=== PATIENT | female | born 1945 | race Caucasian/White ===

== ENCOUNTER 2021-12-05 00:49 | Outpatient (RCR) | payer MEDICARE, BC, SELFPAY ==
[2021-12-04 09:10] VITALS: BP 102/65; PULSE 76; RESP 17; TEMP 36.4; O2SAT 98
[2021-12-04] MEDS: Normal Saline Flush 10 ML SYR IVP (09:11)
[2021-12-04] MEDS: IMMUNE GLOBULIN 5 GM/50 ML BTL IVPB (09:11)
[2021-12-04 09:35] VITALS: BP 109/71; PULSE 80; RESP 16; TEMP 36.3; O2SAT 96
[2021-12-04 09:50] VITALS: BP 110/76; PULSE 80; RESP 17; TEMP 35.8; O2SAT 98
[2021-12-04] MEDS: IMMUNE GLOBULIN 20 GM/200 ML BTL IVPB (10:04)
[2021-12-04 10:20] VITALS: BP 102/68; PULSE 77; RESP 16; TEMP 36.3; O2SAT 98
[2021-12-04 10:50] VITALS: BP 116/77; PULSE 79; RESP 16; TEMP 36.4; O2SAT 97
[2021-12-05] MEDS: Normal Saline Flush 10 ML SYR IVP (09:03)
[2021-12-05] MEDS: IMMUNE GLOBULIN 5 GM/50 ML BTL IVPB (09:03)
[2021-12-05 09:10] VITALS: BP 112/79; PULSE 70; RESP 18; TEMP 36.5; O2SAT 97
[2021-12-05 09:25] VITALS: BP 119/78; PULSE 70; RESP 17; TEMP 36.5; O2SAT 97
[2021-12-05 09:40] VITALS: BP 109/78; PULSE 72; RESP 17; TEMP 36.6; O2SAT 97
[2021-12-05] MEDS: IMMUNE GLOBULIN 20 GM/200 ML BTL IVPB (09:51)
[2021-12-05 10:10] VITALS: BP 122/78; PULSE 84; RESP 16; TEMP 36.6; O2SAT 100
[2021-12-05 10:40] VITALS: BP 132/81; PULSE 73; RESP 17; TEMP 36.5; O2SAT 99
== END 2021-12-31 23:59 | disposition home or self-care (01) ==
LOC: INF 00:49
PROVIDERS: Visit Provider Family Medicine
DX: G61.81 Chronic inflammatory demyelinating polyneuritis (principal)
CPT/HCPCS: 96365; 96366; J1459

== ENCOUNTER 2022-01-02 01:07 | Outpatient (RCR) | payer MEDICARE, BC, SELFPAY ==
[2022-01-01] VITALS (7 sets, daily range): BP systolic 114–136; BP diastolic 72–82; PULSE 61–84; RESP 16–17; TEMP 36.1–36.7; O2SAT 97–100
[2022-01-01] MEDS: IMMUNE GLOBULIN 5 GM/50 ML BTL IVPB (09:20)
[2022-01-01] MEDS: Normal Saline Flush 10 ML SYR IVP (09:21)
[2022-01-01] MEDS: IMMUNE GLOBULIN 20 GM/200 ML BTL IVPB (10:08)
[2022-01-02] MEDS: Normal Saline Flush 10 ML SYR IVP (09:04)
[2022-01-02] MEDS: IMMUNE GLOBULIN 5 GM/50 ML BTL IVPB (09:04)
[2022-01-02 09:10] VITALS: BP 123/76; PULSE 86; RESP 16; TEMP 36.1; O2SAT 98
[2022-01-02 09:25] VITALS: BP 119/77; PULSE 67; RESP 18; TEMP 36.5; O2SAT 99
[2022-01-02 09:40] VITALS: BP 114/75; PULSE 67; RESP 16; TEMP 36.5; O2SAT 98
[2022-01-02] MEDS: IMMUNE GLOBULIN 20 GM/200 ML BTL IVPB (09:52)
[2022-01-02 10:10] VITALS: BP 128/76; PULSE 67; RESP 16; TEMP 36.4; O2SAT 97
[2022-01-02 10:45] VITALS: BP 123/72; PULSE 72; RESP 22; TEMP 36.4; O2SAT 98
[2022-01-02 11:10] VITALS: BP 127/80; PULSE 67; RESP 16; TEMP 36.3; O2SAT 99
== END 2022-01-30 23:59 | disposition home or self-care (01) ==
LOC: INF 01:07
PROVIDERS: Visit Provider Family Medicine
DX: G61.81 Chronic inflammatory demyelinating polyneuritis (principal)
CPT/HCPCS: 96365; 96366; J1459

== ENCOUNTER 2022-02-04 02:03 | Outpatient (RCR) | payer MEDICARE, BC, SELFPAY ==
[2022-01-31 00:05] VITALS: BP 127/80; PULSE 67; RESP 16; TEMP 36.3
[2022-02-03 09:20] VITALS: BP 120/79; PULSE 66; RESP 16; TEMP 36.7; O2SAT 98
[2022-02-03] MEDS: IMMUNE GLOBULIN 5 GM/50 ML BTL IVPB (09:20)
[2022-02-03] MEDS: Normal Saline Flush 10 ML SYR IVP (09:23)
[2022-02-03 09:35] VITALS: BP 120/78; PULSE 70; RESP 16; TEMP 37; O2SAT 98
[2022-02-03 09:50] VITALS: BP 118/77; PULSE 72; RESP 16; TEMP 37; O2SAT 97
[2022-02-03] MEDS: IMMUNE GLOBULIN 20 GM/200 ML BTL IVPB (09:55)
[2022-02-03 10:20] VITALS: BP 118/79; PULSE 64; RESP 16; TEMP 36.7; O2SAT 97
[2022-02-03 10:50] VITALS: BP 120/72; PULSE 75; RESP 16; TEMP 36.9; O2SAT 97
[2022-02-04] MEDS: Normal Saline Flush 10 ML SYR IVP (09:04)
[2022-02-04 09:05] VITALS: BP 124/78; PULSE 83; RESP 17; TEMP 36.5; O2SAT 100
[2022-02-04] MEDS: IMMUNE GLOBULIN 5 GM/50 ML BTL IVPB (09:05)
[2022-02-04 09:25] VITALS: BP 110/74; PULSE 72; RESP 17; TEMP 36.5; O2SAT 98
[2022-02-04 09:40] VITALS: BP 115/81; PULSE 73; RESP 17; TEMP 36.6; O2SAT 100
[2022-02-04] MEDS: IMMUNE GLOBULIN 20 GM/200 ML BTL IVPB (09:53)
[2022-02-04 10:10] VITALS: BP 124/83; PULSE 75; RESP 16; TEMP 36.7; O2SAT 98
[2022-02-04 10:40] VITALS: BP 116/77; PULSE 76; RESP 16; TEMP 36.5; O2SAT 99
[2022-02-04 11:15] VITALS: BP 122/84; PULSE 74; RESP 16; TEMP 35.9; O2SAT 100
== END 2022-03-02 23:59 | disposition home or self-care (01) ==
LOC: INF 02:03
PROVIDERS: Visit Provider Family Medicine
DX: G61.81 Chronic inflammatory demyelinating polyneuritis (principal)
CPT/HCPCS: 96365; 96366; J1459

== ENCOUNTER 2022-04-01 03:08 | Outpatient (RCR) | payer MEDICARE, BC, SELFPAY ==
[2022-03-03] VITALS (7 sets, daily range): BP systolic 114–149; BP diastolic 71–84; PULSE 59–75; RESP 16–19; TEMP 35.9–36.3; O2SAT 96–99
[2022-03-03] MEDS: IMMUNE GLOBULIN 5 GM/50 ML BTL IVPB (09:17)
[2022-03-03] MEDS: Normal Saline Flush 10 ML SYR IVP (09:28)
[2022-03-03] MEDS: IMMUNE GLOBULIN 20 GM/200 ML BTL IV (09:57)
[2022-03-04 09:05] VITALS: BP 107/74; PULSE 70; RESP 16; TEMP 36.2; O2SAT 100
[2022-03-04] MEDS: IMMUNE GLOBULIN 5 GM/50 ML BTL IVPB (09:05)
[2022-03-04] MEDS: Normal Saline Flush 10 ML SYR IVP (09:13)
[2022-03-04 09:25] VITALS: BP 110/70; PULSE 65; RESP 16; TEMP 36.2; O2SAT 100
[2022-03-04 09:40] VITALS: BP 111/73; PULSE 69; RESP 16; TEMP 36.5; O2SAT 98
[2022-03-04] MEDS: IMMUNE GLOBULIN 20 GM/200 ML BTL IV (09:45)
[2022-03-04 10:10] VITALS: BP 116/75; PULSE 71; RESP 16; TEMP 36.5; O2SAT 98
[2022-03-04 10:40] VITALS: BP 142/88; PULSE 72; RESP 16; TEMP 36.3; O2SAT 100
[2022-03-04 11:05] VITALS: BP 122/81; PULSE 73; RESP 16; TEMP 36.4; O2SAT 99
[2022-03-31 11:10] VITALS: BP 116/80; PULSE 70; RESP 16; TEMP 36.6; O2SAT 100
[2022-03-31] MEDS: IMMUNE GLOBULIN 5 GM/50 ML BTL IVPB (11:10)
[2022-03-31] MEDS: Normal Saline Flush 10 ML SYR IVP (11:14)
[2022-03-31 11:25] VITALS: BP 119/79; PULSE 72; RESP 16; TEMP 36.5; O2SAT 98
[2022-03-31 11:40] VITALS: BP 123/80; PULSE 72; RESP 16; TEMP 36.6; O2SAT 97
[2022-03-31] MEDS: IMMUNE GLOBULIN 20 GM/200 ML BTL IV (11:46)
[2022-03-31 12:10] VITALS: BP 114/73; PULSE 77; RESP 16; TEMP 36.8; O2SAT 97
[2022-03-31 12:40] VITALS: BP 111/76; PULSE 84; RESP 16; TEMP 36.6; O2SAT 97
[2022-04-01 08:45] VITALS: BP 115/77; PULSE 63; RESP 17; TEMP 36.2; O2SAT 98
[2022-04-01] MEDS: IMMUNE GLOBULIN 5 GM/50 ML BTL IVPB (08:53)
[2022-04-01] MEDS: Normal Saline Flush 10 ML SYR IVP (08:53)
[2022-04-01 09:10] VITALS: BP 111/73; PULSE 63; RESP 17; TEMP 36.8; O2SAT 98
[2022-04-01 09:25] VITALS: BP 120/83; PULSE 65; RESP 17; TEMP 36.9; O2SAT 98
[2022-04-01] MEDS: IMMUNE GLOBULIN 20 GM/200 ML BTL IV (09:33)
[2022-04-01 09:55] VITALS: BP 116/75; PULSE 76; RESP 17; TEMP 36.9; O2SAT 98
[2022-04-01 10:25] VITALS: BP 110/70; PULSE 72; RESP 17; TEMP 36.8; O2SAT 98
== END 2022-04-01 23:59 | disposition home or self-care (01) ==
LOC: INF 03:08
PROVIDERS: Visit Provider Family Medicine
DX: G61.81 Chronic inflammatory demyelinating polyneuritis (principal)
CPT/HCPCS: 96365; 96366; J1459

== ENCOUNTER 2022-04-29 02:11 | Outpatient (RCR) | payer MEDICARE, BC, SELFPAY ==
[2022-04-02 00:04] VITALS: BP 110/70; PULSE 72; RESP 17; TEMP 36.8
[2022-04-28] MEDS: Normal Saline Flush 10 ML SYR IVP (09:16)
[2022-04-28] MEDS: IMMUNE GLOBULIN 5 GM/50 ML BTL IVPB (09:17)
[2022-04-28 09:20] VITALS: BP 118/78; PULSE 65; RESP 17; TEMP 36.3; O2SAT 99
[2022-04-28 09:40] VITALS: BP 110/79; PULSE 65; RESP 17; TEMP 36.5; O2SAT 97
[2022-04-28 09:55] VITALS: BP 118/79; PULSE 67; RESP 17; TEMP 36.4; O2SAT 98
[2022-04-28] MEDS: IMMUNE GLOBULIN 20 GM/200 ML BTL IVPB (10:05)
[2022-04-28 10:25] VITALS: BP 120/76; PULSE 66; RESP 16; TEMP 36.3; O2SAT 98
[2022-04-28 10:56] VITALS: BP 121/81; PULSE 66; RESP 17; TEMP 36.5; O2SAT 98
[2022-04-29 09:05] VITALS: BP 128/83; PULSE 66; RESP 17; TEMP 35.7; O2SAT 97
[2022-04-29] MEDS: Normal Saline Flush 10 ML SYR IVP (09:11)
[2022-04-29] MEDS: IMMUNE GLOBULIN 5 GM/50 ML BTL IVPB (09:11)
[2022-04-29 09:20] VITALS: BP 126/85; PULSE 68; RESP 17; TEMP 36; O2SAT 100
[2022-04-29 09:40] VITALS: BP 128/84; PULSE 70; RESP 17; TEMP 36.4; O2SAT 100
[2022-04-29] MEDS: IMMUNE GLOBULIN 20 GM/200 ML BTL IVPB (09:55)
[2022-04-29 10:10] VITALS: BP 133/79; PULSE 66; RESP 17; TEMP 36.3; O2SAT 100
[2022-04-29 10:40] VITALS: BP 118/77; PULSE 75; RESP 17; TEMP 36.3; O2SAT 100
== END 2022-05-02 23:59 | disposition home or self-care (01) ==
LOC: INF 02:11
PROVIDERS: Visit Provider Family Medicine
DX: G61.81 Chronic inflammatory demyelinating polyneuritis (principal)
CPT/HCPCS: 96365; 96366; J1459

== ENCOUNTER → 2022-05-22 08:24 | Outpatient (BNVA) | payer MEDICARE, BC, SELFPAY | PROVIDERS: PCP Registered Nurse; Referring Provider Registered Nurse; Visit Provider Student in an Organized Health Care Education/Training Program | DX: M17.11 Unilateral primary osteoarthritis, right knee (principal) | CPT/HCPCS: 99203 ==

== ENCOUNTER 2022-05-26 03:08 | Outpatient (RCR) | payer MEDICARE, BC, SELFPAY ==
[2022-05-03 00:03] VITALS: BP 118/77; PULSE 75; RESP 17; TEMP 36.3
[2022-05-25 09:10] VITALS: BP 114/77; PULSE 69; RESP 17; TEMP 36.5; O2SAT 100
[2022-05-25] MEDS: IMMUNE GLOBULIN 5 GM/50 ML BTL IVPB (09:11)
[2022-05-25] MEDS: Normal Saline Flush 10 ML SYR IVP (09:12)
[2022-05-25 09:30] VITALS: BP 117/78; PULSE 75; RESP 17; TEMP 36.1; O2SAT 99
[2022-05-25 09:45] VITALS: BP 115/78; PULSE 65; RESP 17; TEMP 36.3; O2SAT 98
[2022-05-25] MEDS: IMMUNE GLOBULIN 20 GM/200 ML BTL IVPB (09:54)
[2022-05-25 10:15] VITALS: BP 104/77; PULSE 61; RESP 17; TEMP 36.4; O2SAT 100
[2022-05-25 10:45] VITALS: BP 113/78; PULSE 60; RESP 17; TEMP 36.3; O2SAT 100
[2022-05-26 09:00] VITALS: BP 113/77; PULSE 69; RESP 17; TEMP 35.8; O2SAT 98
[2022-05-26] MEDS: Normal Saline Flush 10 ML SYR IVP (09:02)
[2022-05-26] MEDS: IMMUNE GLOBULIN 5 GM/50 ML BTL IVPB (09:10)
[2022-05-26 09:30] VITALS: BP 116/74; PULSE 75; RESP 17; TEMP 36.5; O2SAT 97
[2022-05-26 09:45] VITALS: BP 127/81; PULSE 85; RESP 17; TEMP 36.6; O2SAT 98
[2022-05-26] MEDS: IMMUNE GLOBULIN 20 GM/200 ML BTL IVPB (09:58)
[2022-05-26 10:15] VITALS: BP 120/78; PULSE 81; RESP 17; TEMP 36.6; O2SAT 99
[2022-05-26 10:45] VITALS: BP 108/74; PULSE 67; RESP 17; TEMP 36.4; O2SAT 97
[2022-05-26 11:15] VITALS: BP 109/74; PULSE 73; RESP 17; TEMP 36.5; O2SAT 100
== END 2022-06-02 23:59 | disposition home or self-care (01) ==
LOC: INF 03:08
PROVIDERS: PCP Registered Nurse; Visit Provider Family Medicine
DX: G61.81 Chronic inflammatory demyelinating polyneuritis (principal)
CPT/HCPCS: 96365; 96366; J1459

== ENCOUNTER 2022-06-26 01:21 | Outpatient (RCR) | payer MEDICARE, BC, SELFPAY ==
[2022-06-03 00:13] VITALS: BP 109/74; PULSE 73; RESP 17; TEMP 36.5
[2022-06-24] MEDS: IMMUNE GLOBULIN 5 GM/50 ML BTL IV (09:15)
[2022-06-24] MEDS: Normal Saline Flush 10 ML SYR IVP (09:16)
[2022-06-24 09:25] VITALS: BP 116/73; PULSE 80; RESP 18; TEMP 36.4; O2SAT 100
[2022-06-24 09:40] VITALS: BP 115/76; PULSE 69; RESP 17; TEMP 36.8; O2SAT 100
[2022-06-24 09:55] VITALS: BP 114/79; PULSE 67; RESP 17; TEMP 36.6; O2SAT 98
[2022-06-24] MEDS: IMMUNE GLOBULIN 20 GM/200 ML BTL IV (10:07)
[2022-06-24 10:35] VITALS: BP 114/78; PULSE 64; RESP 17; TEMP 36.6; O2SAT 98
[2022-06-24 10:59] VITALS: BP 116/74; PULSE 69; RESP 16; TEMP 36.8; O2SAT 100
[2022-06-24 11:25] VITALS: BP 112/71; PULSE 65; RESP 18; TEMP 36.5; O2SAT 98
[2022-06-26 10:12] VITALS: BP 125/79; PULSE 68; RESP 16; TEMP 36.5; O2SAT 98
[2022-06-26] MEDS: IMMUNE GLOBULIN 5 GM/50 ML BTL IV (10:12)
[2022-06-26] MEDS: Normal Saline Flush 10 ML SYR IVP (10:12)
[2022-06-26 10:27] VITALS: BP 123/79; PULSE 73; RESP 16; TEMP 36.5; O2SAT 99
[2022-06-26 10:45] VITALS: BP 125/79; PULSE 68; RESP 16; TEMP 36.5; O2SAT 98
[2022-06-26] MEDS: IMMUNE GLOBULIN 20 GM/200 ML BTL IV (10:50)
[2022-06-26 11:15] VITALS: BP 131/81; PULSE 77; RESP 16; TEMP 36.8; O2SAT 99
[2022-06-26 11:44] VITALS: BP 118/79; PULSE 68; RESP 165; TEMP 36.4; O2SAT 100
[2022-06-26 12:10] VITALS: BP 118/71; PULSE 65; RESP 16; TEMP 36.5; O2SAT 98
== END 2022-06-30 23:59 | disposition home or self-care (01) ==
LOC: INF 01:21
PROVIDERS: PCP Registered Nurse; Visit Provider Family Medicine
DX: G61.81 Chronic inflammatory demyelinating polyneuritis (principal)
CPT/HCPCS: 96365; 96366; J1459

== ENCOUNTER 2022-07-21 02:02 | Outpatient (RCR) | payer MEDICARE, BC, SELFPAY ==
[2022-07-01 00:06] VITALS: BP 118/71; PULSE 65; RESP 16; TEMP 36.5
[2022-07-20 11:55] VITALS: BP 128/82; PULSE 69; RESP 16; TEMP 36.2; O2SAT 98
[2022-07-20] MEDS: IMMUNE GLOBULIN 5 GM/50 ML BTL IVPB (12:11)
[2022-07-20] MEDS: Normal Saline Flush 10 ML SYR IVP (12:11)
[2022-07-20 12:25] VITALS: BP 134/80; PULSE 72; RESP 16; TEMP 36.7; O2SAT 98
[2022-07-20 12:40] VITALS: BP 144/77; PULSE 70; RESP 16; TEMP 36.2; O2SAT 98
[2022-07-20] MEDS: IMMUNE GLOBULIN 20 GM/200 ML BTL IVPB (12:47)
[2022-07-20 13:10] VITALS: BP 125/84; PULSE 70; RESP 16; TEMP 36.3; O2SAT 97
[2022-07-20 13:40] VITALS: BP 123/89; PULSE 69; RESP 17; TEMP 36.4; O2SAT 96
[2022-07-20 14:10] VITALS: BP 120/77; PULSE 67; RESP 16; TEMP 36.7; O2SAT 100
[2022-07-21 09:05] VITALS: BP 114/83; PULSE 72; RESP 17; TEMP 36; O2SAT 100
[2022-07-21] MEDS: IMMUNE GLOBULIN 5 GM/50 ML BTL IVPB (09:09)
[2022-07-21 09:30] VITALS: BP 120/79; PULSE 75; TEMP 36.3; O2SAT 99
[2022-07-21 09:45] VITALS: BP 122/79; PULSE 74; TEMP 36.2; O2SAT 98
[2022-07-21] MEDS: IMMUNE GLOBULIN 20 GM/200 ML BTL IVPB (09:55)
[2022-07-21 10:15] VITALS: BP 115/81; PULSE 80; RESP 17; TEMP 36.6; O2SAT 97
[2022-07-21 10:45] VITALS: BP 131/90; PULSE 80; TEMP 36.4; O2SAT 98
[2022-07-21] MEDS: Normal Saline Flush 10 ML SYR IVP (13:15)
== END 2022-07-31 23:59 | disposition home or self-care (01) ==
LOC: INF 02:02
PROVIDERS: PCP Registered Nurse; Visit Provider Family Medicine
DX: G61.81 Chronic inflammatory demyelinating polyneuritis (principal)
CPT/HCPCS: 96365; 96366; J1459

== ENCOUNTER 2022-08-19 02:28 | Outpatient (RCR) | payer MEDICARE, BC, SELFPAY ==
[2022-08-01 00:16] VITALS: BP 131/90; PULSE 80; RESP 17; TEMP 36.4
[2022-08-18 12:10] VITALS: BP 106/74; PULSE 69; RESP 16; TEMP 36.4; O2SAT 98
[2022-08-18] MEDS: IMMUNE GLOBULIN 5 GM/50 ML BTL IVPB (12:18)
[2022-08-18] MEDS: Normal Saline Flush 10 ML SYR IVP (12:20)
[2022-08-18 12:34] VITALS: BP 119/77; PULSE 74; RESP 17; TEMP 36.5; O2SAT 98
[2022-08-18 12:50] VITALS: BP 120/81; PULSE 74; RESP 17; TEMP 36.5; O2SAT 99
[2022-08-18] MEDS: IMMUNE GLOBULIN 20 GM/200 ML BTL IVPB (12:50)
[2022-08-18 13:20] VITALS: BP 113/75; PULSE 78; RESP 17; TEMP 36.5; O2SAT 96
[2022-08-18 13:46] VITALS: BP 113/75; PULSE 77; RESP 16; TEMP 36.5; O2SAT 97
[2022-08-18 14:10] VITALS: BP 118/72; PULSE 71; RESP 16; TEMP 36.5; O2SAT 99
[2022-08-19 08:50] VITALS: BP 121/77; PULSE 70; RESP 17; TEMP 36.5; O2SAT 96
[2022-08-19] MEDS: Normal Saline Flush 10 ML SYR IVP (08:50)
[2022-08-19] MEDS: IMMUNE GLOBULIN 5 GM/50 ML BTL IVPB (08:51)
[2022-08-19 09:10] VITALS: BP 130/90; PULSE 70; RESP 17; TEMP 36.5; O2SAT 96
[2022-08-19 09:25] VITALS: BP 117/70; PULSE 74; RESP 17; TEMP 36.4; O2SAT 97
[2022-08-19] MEDS: IMMUNE GLOBULIN 20 GM/200 ML BTL IVPB (09:42)
[2022-08-19 09:55] VITALS: BP 112/75; PULSE 72; RESP 17; TEMP 36.5; O2SAT 97
[2022-08-19 10:25] VITALS: BP 115/74; PULSE 69; RESP 17; TEMP 36.5; O2SAT 97
[2022-08-19 10:50] VITALS: BP 122/72; PULSE 70; RESP 17; TEMP 36.5; O2SAT 97
== END 2022-08-30 23:59 | disposition home or self-care (01) ==
LOC: INF 02:28
PROVIDERS: PCP Registered Nurse; Visit Provider Family Medicine
DX: G61.81 Chronic inflammatory demyelinating polyneuritis (principal)
CPT/HCPCS: 96365; 96366; J1459

== ENCOUNTER 2022-09-18 01:41 | Outpatient (RCR) | payer MEDICARE, BC, SELFPAY ==
[2022-08-31 00:18] VITALS: BP 122/72; PULSE 70; RESP 17; TEMP 36.5
[2022-09-17 09:40] VITALS: BP 118/73; PULSE 76; RESP 14; TEMP 36.5; O2SAT 96
[2022-09-17] MEDS: IMMUNE GLOBULIN 5 GM/50 ML BTL IVPB (09:43)
[2022-09-17] MEDS: Normal Saline Flush 10 ML SYR IVP (09:43)
[2022-09-17 09:58] VITALS: BP 111/71; PULSE 72; RESP 14; TEMP 36.5; O2SAT 97
[2022-09-17 10:14] VITALS: BP 113/73; PULSE 74; RESP 16; TEMP 36.6; O2SAT 97
[2022-09-17] MEDS: IMMUNE GLOBULIN 20 GM/200 ML BTL IVPB (10:18)
[2022-09-17 10:45] VITALS: BP 106/71; PULSE 72; RESP 15; TEMP 36.8; O2SAT 99
[2022-09-17 11:15] VITALS: BP 129/90; PULSE 77; RESP 14; TEMP 36.5; O2SAT 97
[2022-09-17 11:35] VITALS: BP 117/71; PULSE 72; RESP 16; TEMP 36.5; O2SAT 99
[2022-09-18 09:00] VITALS: BP 116/72; PULSE 72; RESP 16; TEMP 37; O2SAT 97
[2022-09-18] MEDS: IMMUNE GLOBULIN 5 GM/50 ML BTL IVPB (09:06)
[2022-09-18] MEDS: Normal Saline Flush 10 ML SYR IVP (09:06)
[2022-09-18 09:20] VITALS: BP 110/72; PULSE 72; RESP 16; TEMP 36.9; O2SAT 95
[2022-09-18 09:35] VITALS: BP 112/70; PULSE 72; RESP 16; TEMP 37.1; O2SAT 100
[2022-09-18] MEDS: IMMUNE GLOBULIN 20 GM/200 ML BTL IVPB (09:40)
[2022-09-18 10:05] VITALS: BP 103/69; PULSE 77; RESP 16; TEMP 37.1; O2SAT 97
[2022-09-18 10:35] VITALS: BP 114/73; PULSE 74; RESP 16; TEMP 37.1; O2SAT 97
[2022-09-18 10:50] VITALS: BP 161/75; PULSE 69; RESP 16; TEMP 37; O2SAT 97
== END 2022-09-30 23:59 | disposition home or self-care (01) ==
LOC: INF 01:41
PROVIDERS: PCP Registered Nurse; Visit Provider Family Medicine
DX: G61.81 Chronic inflammatory demyelinating polyneuritis (principal)
CPT/HCPCS: 96365; 96366; J1459

== ENCOUNTER → 2022-10-05 13:51 | Outpatient (BNVA) | payer MEDICARE, BC, SELFPAY | PROVIDERS: PCP Registered Nurse; Referring Provider Registered Nurse; Visit Provider Student in an Organized Health Care Education/Training Program | DX: M17.11 Unilateral primary osteoarthritis, right knee (principal) | CPT/HCPCS: 20610; J1040 ==

== ENCOUNTER 2022-10-14 03:03 | Outpatient (RCR) | payer MEDICARE, BC, SELFPAY ==
[2022-10-01 00:07] VITALS: BP 161/75; PULSE 69; RESP 16; TEMP 37
[2022-10-13] MEDS: Normal Saline Flush 10 ML SYR IVP (09:19)
[2022-10-13] MEDS: IMMUNE GLOBULIN 20 GM/200 ML BTL IVPB (09:19)
[2022-10-13 09:20] VITALS: BP 121/79; PULSE 76; RESP 17; TEMP 36.8; O2SAT 96
[2022-10-13 09:35] VITALS: BP 115/76; PULSE 76; RESP 17; TEMP 36.7; O2SAT 98
[2022-10-13 09:52] VITALS: BP 117/79; PULSE 78; RESP 16; TEMP 36.7; O2SAT 99
[2022-10-13 10:22] VITALS: BP 124/86; PULSE 69; RESP 16; TEMP 36.7; O2SAT 97
[2022-10-13 10:52] VITALS: BP 131/84; PULSE 71; RESP 16; TEMP 36.6; O2SAT 98
[2022-10-13] MEDS: IMMUNE GLOBULIN 5 GM/50 ML BTL IVPB (10:56)
[2022-10-13 11:10] VITALS: BP 116/72; PULSE 72; RESP 16; TEMP 36.5; O2SAT 98
[2022-10-14 09:10] VITALS: BP 119/84; PULSE 77; RESP 17; TEMP 36.3; O2SAT 98
[2022-10-14] MEDS: IMMUNE GLOBULIN 5 GM/50 ML BTL IVPB (09:17)
[2022-10-14] MEDS: Normal Saline Flush 10 ML SYR IVP (09:17)
[2022-10-14 09:30] VITALS: BP 107/73; PULSE 74; RESP 17; TEMP 36.4; O2SAT 99
[2022-10-14 09:45] VITALS: BP 120/80; PULSE 70; RESP 17; TEMP 36.4; O2SAT 98
[2022-10-14] MEDS: IMMUNE GLOBULIN 20 GM/200 ML BTL IVPB (09:52)
[2022-10-14 10:20] VITALS: BP 117/79; PULSE 75; RESP 16; TEMP 36.6; O2SAT 96
[2022-10-14 10:48] VITALS: BP 132/84; PULSE 71; RESP 16; TEMP 36.6; O2SAT 97
== END 2022-10-30 23:59 | disposition home or self-care (01) ==
LOC: INF 03:03
PROVIDERS: PCP Registered Nurse; Visit Provider Family Medicine
DX: G61.81 Chronic inflammatory demyelinating polyneuritis (principal)
CPT/HCPCS: 96365; 96366; J1459

== ENCOUNTER 2022-11-30 01:56 | Outpatient (RCR) | payer MEDICARE, BC, SELFPAY ==
[2022-10-31 00:04] VITALS: BP 132/84; PULSE 71; RESP 16; TEMP 36.6
[2022-11-05 09:00] VITALS: BP 131/83; PULSE 70; RESP 16; TEMP 36.2; O2SAT 97
[2022-11-05] MEDS: IMMUNE GLOBULIN 5 GM/50 ML BTL IVPB (09:02)
[2022-11-05] MEDS: Normal Saline Flush 10 ML SYR IVP (09:02)
[2022-11-05 09:20] VITALS: BP 125/81; PULSE 68; RESP 17; TEMP 36.1; O2SAT 97
[2022-11-05 09:35] VITALS: BP 132/80; PULSE 70; RESP 17; TEMP 36.1; O2SAT 97
[2022-11-05] MEDS: IMMUNE GLOBULIN 20 GM/200 ML BTL IVPB (09:40)
[2022-11-05 10:05] VITALS: BP 123/84; PULSE 65; RESP 17; TEMP 36.1; O2SAT 97
[2022-11-05 10:35] VITALS: BP 139/80; PULSE 67; RESP 18; TEMP 36.3; O2SAT 100
[2022-11-06 10:10] VITALS: BP 120/82; PULSE 67; RESP 17; TEMP 37.1; O2SAT 96
[2022-11-06] MEDS: IMMUNE GLOBULIN 5 GM/50 ML BTL IVPB (10:11)
[2022-11-06] MEDS: Normal Saline Flush 10 ML SYR IVP (10:11)
[2022-11-06 10:25] VITALS: BP 120/85; PULSE 76; RESP 17; TEMP 37; O2SAT 96
[2022-11-06 10:40] VITALS: BP 128/90; PULSE 78; RESP 17; TEMP 36.6; O2SAT 96
[2022-11-06] MEDS: IMMUNE GLOBULIN 20 GM/200 ML BTL IVPB (10:51)
[2022-11-06 11:15] VITALS: BP 119/81; PULSE 69; RESP 17; TEMP 37; O2SAT 96
[2022-11-06 11:45] VITALS: BP 116/71; PULSE 74; RESP 17; TEMP 37; O2SAT 96
[2022-11-30] MEDS: Normal Saline Flush 10 ML SYR IVP (09:18)
[2022-11-30] MEDS: IMMUNE GLOBULIN 5 GM/50 ML BTL IV (09:18)
[2022-11-30 09:20] VITALS: BP 111/73; PULSE 66; RESP 17; TEMP 36.5; O2SAT 98
[2022-11-30 09:35] VITALS: BP 105/69; PULSE 66; RESP 16; TEMP 36.5; O2SAT 97
[2022-11-30 09:50] VITALS: BP 128/76; PULSE 76; RESP 16; TEMP 35.9; O2SAT 100
[2022-11-30] MEDS: IMMUNE GLOBULIN 20 GM/200 ML BTL IV (09:59)
[2022-11-30 10:20] VITALS: BP 107/75; PULSE 76; RESP 16; TEMP 35.9; O2SAT 98
[2022-11-30 10:50] VITALS: BP 113/75; PULSE 80; RESP 16; TEMP 36.1; O2SAT 99
== END 2022-11-30 23:59 | disposition home or self-care (01) ==
LOC: INF 01:56
PROVIDERS: PCP Registered Nurse; Visit Provider Family Medicine
DX: G61.81 Chronic inflammatory demyelinating polyneuritis (principal)
CPT/HCPCS: 96365; 96366; J1459

== ENCOUNTER 2022-12-29 10:00 | Outpatient (RCR) | payer MEDICARE, BC, SELFPAY ==
[2022-12-01 00:03] VITALS: BP 113/75; PULSE 80; RESP 16; TEMP 36.1
[2022-12-01] MEDS: IMMUNE GLOBULIN 20 GM/200 ML BTL IV (09:13)
[2022-12-01] MEDS: IMMUNE GLOBULIN 5 GM/50 ML BTL IV (09:14)
[2022-12-01 09:15] VITALS: BP 106/68; PULSE 71; RESP 20; TEMP 36.2
[2022-12-01] MEDS: Normal Saline Flush 10 ML SYR IVP (09:15)
[2022-12-01 09:30] VITALS: BP 106/73; PULSE 70; RESP 18; TEMP 36.3
[2022-12-01 10:00] VITALS: BP 111/70; PULSE 70; RESP 18; TEMP 36.4
[2022-12-01 10:30] VITALS: BP 109/72; PULSE 71; RESP 20; TEMP 36.4
[2022-12-29] VITALS (7 sets, daily range): BP systolic 104–131; BP diastolic 67–80; PULSE 74–82; RESP 17; TEMP 36.6–36.8; O2SAT 97–98
[2022-12-29] MEDS: IMMUNE GLOBULIN 10 GM/100 ML BTL IVPB (09:16)
[2022-12-29] MEDS: Normal Saline Flush 10 ML SYR IVP (09:16)
[2022-12-29] MEDS: IMMUNE GLOBULIN 40 GM/400 ML BTL IVPB (10:32)
[2022-12-29 10:58] LABS: Vitamin B12 523 pg/mL (193-986)
== END 2022-12-31 23:59 | disposition home or self-care (01) ==
LOC: INF 10:00
PROVIDERS: Family Medicine; PCP Registered Nurse; Visit Provider Family Medicine
DX: E53.8 Deficiency of other specified B group vitamins (principal); G61.81 Chronic inflammatory demyelinating polyneuritis
CPT/HCPCS: 36415; 96365; 96366; 82607; J1459

== ENCOUNTER 2023-01-26 01:37 | Outpatient (RCR) | payer MEDICARE, BC, SELFPAY ==
[2023-01-01 00:03] VITALS: BP 104/67; PULSE 77; RESP 17; TEMP 36.8
[2023-01-26] VITALS (7 sets, daily range): BP systolic 112–127; BP diastolic 74–79; PULSE 66–84; RESP 16–17; TEMP 36.2–36.9; O2SAT 97–100
[2023-01-26] MEDS: IMMUNE GLOBULIN 10 GM/100 ML BTL IVPB (09:13)
[2023-01-26] MEDS: Normal Saline Flush 10 ML SYR IVP (09:13)
[2023-01-26] MEDS: IMMUNE GLOBULIN 40 GM/400 ML BTL IVPB (10:27)
== END 2023-01-30 23:59 | disposition home or self-care (01) ==
LOC: INF 01:37
PROVIDERS: PCP Registered Nurse; Visit Provider Family Medicine
DX: G61.81 Chronic inflammatory demyelinating polyneuritis (principal)
CPT/HCPCS: 96365; 96366; J1459

== ENCOUNTER 2023-01-29 09:36 | Outpatient (CLI) | payer MEDICARE, BC, SELFPAY ==
--- NOTE | 2023-01-29 09:41 | DI.RAD_ITS ---
Exam(s) XR KNEE RT 3V AP,LAT,VERNELL EXAM: XR KNEE RT 3V AP,LAT,VERNELL CLINICAL HISTORY: RIGHT KNEE PAIN. TECHNIQUE: 2D digital imaging was performed of the right knee. Three views obtained. AP, lateral an d PA tunnel views were obtained. COMPARISON: No exams were available for comparison FINDINGS: BONES: No acute fracture is present. No bony destructive lesion is seen. JOINTS: There is narrowing of the medial femoral tibial joint. The articular surfaces are otherwise well maintained. No joint effusion is seen. SOFT TISSUE: There is a well corticated old osseous density adjacent to the lateral femoral condyle. IMPRESSION: Mild narrowing of the femoral tibial joint space. DATA REPOSITORY: RADIATION DOSE DELIVERED:
== END 2023-01-29 09:37 | disposition home or self-care (01) ==
LOC: DIORS 09:37
PROVIDERS: PCP Family Medicine; Referring Provider Family Medicine; Visit Provider Physician Assistant
DX: M17.11 Unilateral primary osteoarthritis, right knee (principal); M23.91 Unspecified internal derangement of right knee
CPT/HCPCS: 20610; 73562; J1040

== ENCOUNTER → 2023-02-23 00:48 | Outpatient (CLI) | payer MEDICARE, BC, SELFPAY ==
--- NOTE | 2023-02-23 09:01 | DI.MAMMO_ITS ---
Exam(s) MAMMO SCREENING EXAM: MAMMO SCREENING CLINICAL HISTORY: SCREENING FOR BREAST CANCER Z12.39 TECHNIQUE: Bilateral full field digital CC and MLO mammographic images were obtained with 3D tomosyn thesis and utilizing computer aided detection (CAD). COMPARISON: There are no priors for comparison. FINDINGS: Masses/Architectural Distortion: There is a partially obscured 1.4 cm nodule superior to the nipple o n the MLO view. There is a biopsy clip in the right breast. Microcalcifications: No suspicious pleomorphic-type are seen. Skin Thickening/Nipple Retraction: None. IMPRESSION: 1. There is a partially obscured 1.4 cm nodule superior to the nipple on the right MLO view. 2. Spot compression view and limited right breast ultrasound are requested for further evaluation. BI-RADS Category 0 - Assessment Incomplete: Need additional imaging evaluation Breast Density - Category C - Heterogeneously dense Breast density category C or D implies that the patient has dense breast tissue. Dense breast tissue is very common and is not abnormal but dense breast tissue can make it harder to find cancer on a ma mmogram. Also, dense breast tissue may increase their breast cancer risk. This information about the result of the mammogram report was provided to the patient to raise their awareness. Use this report when you speak with the patient about their risks for breast cancer, which includes their family hist ory. At that time, you may recommend for more screening tests (Ultrasound or MRI) as they might be us eful based on their risk. A negative radiographic report should not delay biopsy if a dominant or clinically suspicious mass is present. Up to ten percent of cancers are not identified on mammography. A negative report may reinforce clinical impression. Adenosis and dense breasts may obscure an underlying neoplasm. False positive reports average 6 to 10%. Patient will receive a letter notifying them of these results.
== END ==
PROVIDERS: PCP Family Medicine; Visit Provider Family Medicine
DX: Z12.31 Encounter for screening mammogram for malignant neoplasm of breast (principal); R92.333 Mammographic heterogeneous density, bilateral breasts; N63.41 Unspecified lump in right breast, subareolar
CPT/HCPCS: 77063; 77067

== ENCOUNTER 2023-02-23 02:41 | Outpatient (RCR) | payer MEDICARE, BC, SELFPAY ==
[2023-01-31 00:02] VITALS: BP 112/75; PULSE 66; RESP 16; TEMP 36.9
[2023-02-23] VITALS (7 sets, daily range): BP systolic 110–131; BP diastolic 73–81; PULSE 50–70; RESP 16–17; TEMP 36.2–36.7; O2SAT 96–100
[2023-02-23] MEDS: IMMUNE GLOBULIN 10 GM/100 ML BTL IVPB (09:10)
[2023-02-23] MEDS: Normal Saline Flush 10 ML SYR IVP (09:11)
[2023-02-23] MEDS: IMMUNE GLOBULIN 40 GM/400 ML BTL IVPB (10:19)
== END 2023-03-02 23:59 | disposition home or self-care (01) ==
LOC: INF 02:41
PROVIDERS: PCP Family Medicine; Visit Provider Family Medicine
DX: G61.81 Chronic inflammatory demyelinating polyneuritis (principal)
CPT/HCPCS: 96365; 96366; J1459

== ENCOUNTER 2023-03-23 02:50 | Outpatient (RCR) | payer MEDICARE, BC, SELFPAY ==
[2023-03-03 00:15] VITALS: BP 112/75; PULSE 66; RESP 16; TEMP 36.9
[2023-03-23] VITALS (8 sets, daily range): BP systolic 105–126; BP diastolic 67–80; PULSE 72–82; RESP 16; TEMP 35.9–37.1; O2SAT 98–100
[2023-03-23] MEDS: IMMUNE GLOBULIN 10 GM/100 ML BTL IVPB (09:09)
[2023-03-23] MEDS: Normal Saline Flush 10 ML SYR IVP (09:10)
[2023-03-23] MEDS: IMMUNE GLOBULIN 40 GM/400 ML BTL IVPB (10:23)
== END 2023-04-01 23:59 | disposition home or self-care (01) ==
LOC: INF 02:50
PROVIDERS: PCP Family Medicine; Visit Provider Family Medicine
DX: G61.81 Chronic inflammatory demyelinating polyneuritis (principal)
CPT/HCPCS: 96365; 96366; J1459

== ENCOUNTER → 2023-04-09 00:33 | Outpatient (CLI) | payer MEDICARE, BC, SELFPAY ==
--- NOTE | 2023-04-09 | DI.US_ITS ---
Exam(s) MG MAMMO SCREEN CALL BACK UNI US BREAST RT COMPLETE EXAM: MG MAMMO SCREEN CALL BACK UNI-RIGHT AND COMPLETE RIGHT BREAST ULTRASOUND CLINICAL HISTORY: F/U MAMMO,PARTIALLLY OBSCURED NODULE, RT. TECHNIQUE: Unilateral RIGHT BREAST spot mammographic images obtained with 3D tomosynthesisand utiliz ing computer aided detection (CAD). . Complete RIGHT breast Ultrasound was also performed, including all 4 quadrants, the retroareolar reg ion, and the ipsilateral axilla. COMPARISON: This additional imaging was performed due to findings described on the recent screening mammogram of 02/23/2023. FINDINGS: DIAGNOSTIC MAMMOGRAM: Additional mammographic views performed todayrender this area less concerning. COMPLETE RIGHT BREAST ULTRASOUND: Ultrasound performed today reveals no evidence of solid or significant cystic lesions in all 4 quadra nts.. Scanning of the ipsilateral axilla reveals no significant adenopathy. IMPRESSION: 1. No radiographic evidence of malignancy in the right breast. 2. Negative complete right breast ultrasound Appropriate follow-up is to keep this patient on a yearly mammogram schedule, with earlier imaging i f a self detected breast change is noted.. The patient was informed of these findings and recommendations by myself prior to leaving the departm ent today. BI-RADS Category 2 - Benign Findings Breast Density - Category C - Heterogeneously dense Breast density Category C or D implies that the patient has dense breast tissue. Dense breast tissue can make it harder to find cancer on a mammogram. Dense breast tissue is also associated with an incr eased risk of breast cancer. This information about the result of the mammogram report was provided to the patient to raise their awareness. Use this report when you speak with the patient about their risks for breast cancer, which includes their family history. At that time, you may recommend additional screening tests (Ultrasoun d or MRI) as these tests may add significant information. A negative radiographic report should not delay biopsy if a dominant or clinically suspicious mass is present. Up to ten percent of cancers are not identified on mammography. A negative report may reinforce clinical impression. Adenosis and dense breasts may obscure an underlying neoplasm. False positive reports average 6 to 10%. Patient will receive a letter notifying them of these results.
== END ==
PROVIDERS: PCP Family Medicine; Visit Provider Family Medicine
DX: Z12.31 Encounter for screening mammogram for malignant neoplasm of breast (principal); R92.8 Other abnormal and inconclusive findings on diagnostic imaging of breast
CPT/HCPCS: 76642; 77063; 77067

== ENCOUNTER 2023-04-16 01:07 | Outpatient (RCR) | payer MEDICARE, BC, SELFPAY ==
[2023-04-02 00:21] VITALS: BP 112/75; PULSE 66; RESP 16; TEMP 36.9
[2023-04-16] VITALS (8 sets, daily range): BP systolic 120–133; BP diastolic 63–85; PULSE 72–82; RESP 16–18; TEMP 36.6–37.1; O2SAT 97–99
[2023-04-16] MEDS: IMMUNE GLOBULIN 10 GM/100 ML BTL IVPB (11:18)
[2023-04-16] MEDS: Normal Saline Flush 10 ML SYR IVP (11:19)
[2023-04-16] MEDS: IMMUNE GLOBULIN 40 GM/400 ML BTL IVPB (12:34)
== END 2023-05-02 23:59 | disposition home or self-care (01) ==
LOC: INF 01:07
PROVIDERS: PCP Family Medicine; Visit Provider Family Medicine
DX: G61.81 Chronic inflammatory demyelinating polyneuritis (principal)
CPT/HCPCS: 96365; 96366; J1459

== ENCOUNTER → 2023-05-10 01:55 | Outpatient (CLI) | payer MEDICARE, BC, SELFPAY ==
--- NOTE | 2023-05-10 07:30 | DI.MRI_ITS ---
Exam(s) MR LOWER JOINT RT WO EXAM: MR LOWER JOINT RT WO CLINICAL HISTORY: RIGHT KNEE PAIN,internal derangement,M23.91. TECHNIQUE: Multiplanar multisequence MRI was performed. COMPARISON: MR MR KNEE RIGHT WO CONTRAST KN from 05/22/2020 CR XR KNEE RT 3V AP,LAT,VERNELL from 01/29/2023 FINDINGS: BONES: There is no fracture or contusion pattern. There is mild marrow edema seen in the proximal fib erlinda without evidence of a fracture. JOINTS: There is thinning of the articular cartilage overlying the medial patellar facet with mild gonzalez bchondral edema. There is full-thickness loss of the articular cartilage in the medial femoral condy le with subchondral edema present. Small joint effusion. TENDONS: Extensor mechanism: Unremarkable. Medial retinaculum: Unremarkable. Lateral retinaculum: Unremarkable. Popliteus: Unremarkable. MUSCLES: Unremarkable. MENISCI: The body of the medial meniscus is decreased in size with hyperintense T2 signal consistent with a tear. The lateral meniscus is unremarkable. SOFT TISSUES: There is a popliteal cyst present. There is mild edema seen in the soft tissues medial ly and inferior to the cyst which may represent rupture. LIGAMENTS: Anterior Cruciate: Unremarkable. Posterior Cruciate: Unremarkable. Medial Collateral:There is some discontinuity of the proximal aspect of the deep fibers of the MCL wh ich may represent a tear. Lateral Collateral: Unremarkable. OTHER: IMPRESSION: 1. Tear of the body of the medial meniscus. 2. Thinning of the articular cartilage overlying the medial patellar facet and the medial femoral con dyle with underlying subchondral edema. This has progressed since the prior examination. 3. Joint effusion and popliteal cyst with question of a popliteal cyst rupture. 4. Possible tear of the deep fibers of the MCL. DATA REPOSITORY:
== END ==
PROVIDERS: PCP Family Medicine; Visit Provider Student in an Organized Health Care Education/Training Program
DX: S83.241A Other tear of medial meniscus, current injury, right knee, initial encounter (principal); X58.XXXA Exposure to other specified factors, initial encounter
CPT/HCPCS: 73721

== ENCOUNTER 2023-05-18 03:36 | Outpatient (RCR) | payer MEDICARE, BC, SELFPAY ==
[2023-05-03 00:08] VITALS: BP 112/75; PULSE 66; RESP 16; TEMP 36.9
[2023-05-18] VITALS (8 sets, daily range): BP systolic 115–138; BP diastolic 76–86; PULSE 66–74; RESP 16–17; TEMP 36.5–37; O2SAT 98–100
[2023-05-18] MEDS: IMMUNE GLOBULIN 10 GM/100 ML BTL IVPB (09:20)
[2023-05-18] MEDS: Normal Saline Flush 10 ML SYR IVP (09:22)
[2023-05-18] MEDS: IMMUNE GLOBULIN 40 GM/400 ML BTL IVPB (10:24)
== END 2023-06-02 23:59 | disposition home or self-care (01) ==
LOC: INF 03:36
PROVIDERS: PCP Family Medicine; Visit Provider Family Medicine
DX: G61.81 Chronic inflammatory demyelinating polyneuritis (principal)
CPT/HCPCS: 96365; 96366; J1459

== ENCOUNTER → 2023-06-04 11:03 | Outpatient (BNVA) | payer MEDICARE, BC, SELFPAY | PROVIDERS: PCP Family Medicine; Referring Provider Family Medicine; Visit Provider Student in an Organized Health Care Education/Training Program | DX: M17.11 Unilateral primary osteoarthritis, right knee (principal); M23.91 Unspecified internal derangement of right knee | CPT/HCPCS: 99213; J1040 ==

== ENCOUNTER 2023-06-15 03:05 | Outpatient (RCR) | payer MEDICARE, BC, SELFPAY ==
[2023-06-03 00:19] VITALS: BP 112/75; PULSE 66; RESP 16; TEMP 36.9
[2023-06-15] VITALS (7 sets, daily range): BP systolic 118–125; BP diastolic 67–76; PULSE 60–68; RESP 16; TEMP 36.6–36.8; O2SAT 97–100
[2023-06-15] MEDS: IMMUNE GLOBULIN 10 GM/100 ML BTL IVPB (09:21)
[2023-06-15] MEDS: Normal Saline Flush 10 ML SYR IVP (09:22)
[2023-06-15] MEDS: IMMUNE GLOBULIN 40 GM/400 ML BTL IVPB (10:28)
== END 2023-07-01 23:59 | disposition home or self-care (01) ==
LOC: INF 03:05
PROVIDERS: PCP Family Medicine; Visit Provider Family Medicine
DX: G61.81 Chronic inflammatory demyelinating polyneuritis (principal)
CPT/HCPCS: 96365; 96366; J1459

== ENCOUNTER → 2023-06-23 13:45 | Outpatient (BNVA) | payer MEDICARE, BC, SELFPAY | PROVIDERS: PCP Family Medicine; Referring Provider Family Medicine; Visit Provider Student in an Organized Health Care Education/Training Program | DX: M17.11 Unilateral primary osteoarthritis, right knee (principal) | CPT/HCPCS: 99214 ==

== ENCOUNTER 2023-07-13 03:59 | Outpatient (RCR) | payer MEDICARE, BC, SELFPAY ==
[2023-07-02 00:22] VITALS: BP 112/75; PULSE 66; RESP 16; TEMP 36.9
[2023-07-13] VITALS (7 sets, daily range): BP systolic 112–130; BP diastolic 72–81; PULSE 64–75; RESP 16; TEMP 36.8–37.1; O2SAT 97–98
[2023-07-13] MEDS: IMMUNE GLOBULIN 10 GM/100 ML BTL IVPB (09:32)
[2023-07-13] MEDS: Normal Saline Flush 10 ML SYR IVP (09:32)
[2023-07-13] MEDS: IMMUNE GLOBULIN 40 GM/400 ML BTL IVPB (10:30)
== END 2023-08-01 23:59 | disposition home or self-care (01) ==
LOC: INF 03:59
PROVIDERS: PCP Family Medicine; Visit Provider Family Medicine
DX: G61.81 Chronic inflammatory demyelinating polyneuritis (principal)
CPT/HCPCS: 36415; 80048; 82306; 86141; 96365; 96366; 82607; J1459

== ENCOUNTER 2023-07-13 15:00 | Outpatient (CLI) | payer MEDICARE, BC, SELFPAY ==
[2023-07-13 14:43] LABS: Vitamin D 25 Total 53.7 ng/mL (30-100)
[2023-07-13 14:46] LABS: Anion Gap 5.3 mmol/L (3-11); BUN 13 mg/dL (7-18); CO2 28.7 mmol/L (21.0-32.0); CREATININE 0.8 mg/dL (0.55-1.02); Calcium 9.3 mg/dL (8.5-10.1); Chloride 106 mmol/L (98-107); Estimated GFR 76.79 (mL/min/1.73m2); Glucose 81 mg/dL (74-106); Potassium 3.9 mmol/L (3.5-5.1); Sodium 140 mmol/L (136-145); Vitamin B12 469 pg/mL (193-986)
[2023-07-13 21:48] LABS: CRP, High Sensitivity <0.34 mg/L (See Note)
== END 2023-07-13 15:01 | disposition home or self-care (01) ==
LOC: LBO 15:00
PROVIDERS: PCP Family Medicine; Visit Provider Family Medicine
DX: E55.9 Vitamin D deficiency, unspecified (principal); G61.81 Chronic inflammatory demyelinating polyneuritis; Z86.2 Personal history of diseases of the blood and blood-forming organs and certain disorders involving the immune mechanism
CPT/HCPCS: 36415; 80048; 82306; 86141; 82607; 86140

== ENCOUNTER 2023-08-12 05:22 | Outpatient (RCR) | payer MEDICARE, BC, SELFPAY ==
[2023-08-02 00:19] VITALS: BP 112/75; PULSE 66; RESP 16; TEMP 36.9
[2023-08-12] VITALS (8 sets, daily range): BP systolic 113–127; BP diastolic 74–78; PULSE 64–72; RESP 16–17; TEMP 35.5–37.1; O2SAT 96–100
[2023-08-12] MEDS: IMMUNE GLOBULIN 10 GM/100 ML BTL IVPB (09:02)
[2023-08-12] MEDS: Normal Saline Flush 10 ML SYR IVP (09:03)
[2023-08-12] MEDS: IMMUNE GLOBULIN 40 GM/400 ML BTL IVPB (10:14)
== END 2023-08-31 23:59 | disposition home or self-care (01) ==
LOC: INF 05:22
PROVIDERS: PCP Family Medicine; Visit Provider Family Medicine
DX: G61.81 Chronic inflammatory demyelinating polyneuritis (principal)
CPT/HCPCS: 96365; 96366; J1459

== ENCOUNTER 2023-08-20 05:54 | Day surgery (SDC) | payer MEDICARE, BC, SELFPAY ==
[2023-08-20] VITALS (9 sets, daily range): BP systolic 87–123; BP diastolic 60–72; PULSE 59–72; RESP 13–19; TEMP 36.2–36.6; TEMPC 36.2; O2SAT 93–99; BMI 21.4
--- NOTE | 2023-08-20 06:28 | W.ANESPRE ---
General Info Date of Service Date Performed: 08/20/23 Height: 5 ft 3 in Weight: 54.9 kg Body Mass Index (BMI): 21.4 Surgical Procedure: Operation Date: 08/20/23 08:00 Proposed Procedure Side Surgeon p Medial Unicondylar Knee Arthroplasty Right Cali Cook MD Meds Allergies and Home Medications Allergies Allergy/AdvReac Type Severity Reaction Status Date / Time [id number]-[id number] Reductase AdvReac Intermediate Other (See Verified 08/20/23 06:16 Inhibitor Comment) gabapentin AdvReac Other (See Verified 08/20/23 06:16 Comment) Home Medication Medication Instructions Recorded amitriptyline 25 mg tablet 25 mg PO QHS 05/20/22 cholecalciferol (vitamin D3) 25 25 mcg PO DAILY 05/20/22 mcg (1,000 unit) capsule cyanocobalamin (vitamin B-12) 2,000 mcg PO DAILY 05/20/22 1,000 mcg capsule dorzolamide 2 % eye drops 1 drp ophthalmic (eye) BID 05/20/22 estradiol 0.01% (0.1 mg/gram) 1 g vaginal QWEEK 05/20/22 vaginal cream immune glob,gamm(IgG) 10 %-pro-IgA 25 g IV Q4W 05/20/22 0 to 50 mcg/mL intravenous solution (Privigen) latanoprost 0.005 % eye drops 1 drp ophthalmic (eye) QPM 05/20/22 aspirin 81 mg capsule 81 mg PO BID prevent blood clot 30 08/20/23 days #60 caps naproxen 250 mg tablet 250 - 500 mg (1 - 2 x 250 mg) PO 08/20/23 BID PRN moderate pain and swelling #40 tabs tramadol 50 mg tablet 50 mg PO Q8H PRN severe pain #12 08/20/23 tabs Current Visit Medications: Current Medications Generic Name Dose Route Start Last Admin Trade Name Freq PRN Reason Stop Dose Admin Ringer's Solution 1,000 mls @ 30 mls/hr 08/20/23 06:00 IV 08/31/23 23:59 INFUSION PREMA Cefazolin Sodium/Dextrose 2 gm in 50 mls @ 100 mls/hr 08/20/23 06:00 Ancef Duplex IVPB 08/20/23 23:59 PREOP PREMA Tranexamic Acid/Sodium Chloride 1,000 mg in 100 mls @ 600 mls/hr 08/20/23 06:00 IVPB 08/20/23 16:00 PREOP PREMA IV Miscellaneous Supplies 1 each 08/20/23 06:00 Iv Access IV 08/31/23 23:59 DIRECTED PREMA Sodium Chloride 0 ml 08/20/23 06:00 Normal Saline Flush 10 Ml Syr IV 08/31/23 23:59 PRN PRN Sodium Chloride 0 ml 08/20/23 06:00 Normal Saline 10 Ml Vial IJ 08/31/23 23:59 DIRECTED PRN Sterile Water 0 ml 08/20/23 06:00 Water,Injection,Sterile 10 Ml Vial IJ 08/31/23 23:59 DIRECTED PRN PFSH Active Problems Active Problems: Problem Status Onset Code Osteoarthritis of right knee M17.11 Medical History Medical History History of ETOH abuse CIDP (chronic inflammatory demyelinating polyneuropathy) Depression Migraines Wide-angle glaucoma History of bulimia Abnormal mammogram Skin cancer basal cell carcinoma of nose Vulvodynia Peralta's esophagus with esophagitis Rectocele IBS (irritable bowel syndrome) GERD (gastroesophageal reflux disease) Surgical History Surgical History History of tubal ligation H/O dilation and curettage Hx of arthroscopic knee surgery S/P right knee arthroscopy Tobacco Smoking/Tobacco Use Status: Former Tobacco Use Alcohol Alcohol Intake: current Alcohol intake frequency: a few times a week Alcohol type: wine Substance Use Substance use: Never Substance use type: does not use Vital Signs and Lab Results Lab Results Blood Type / Crossmatch: No Data to Display Complete Blood Count: No Data to Display Complete Metabolic Panel: No Data to Display Liver Function Panel: No Data to Display Coagulation Panel: No Data to Display Cardiac Panel: No Data to Display Arterial Blood Gas: No Data to Display Venous Blood Gas: No Data to Display Pancreas Panel: No Data to Display Thyroid Panel: No Data to Display Infectious Disease: No Data to Display Blood Cultures: No Data to Display Toxicology Panel: No Data to Display Anesthesia Assessment and Plan Anesthesia History Personal History: No History of Anesthesia Complications Family History: No Family History of Anesthesia Complications Exercise Tolerance Exercise Tolerance: Metabolic Equivalents>4 Pertinent Negatives Pertinent Negatives: No Symptoms of GERD, No Major Cardiovascular Symptoms or Complaints, No Major Pulmonary Symptoms or Complaints and No History of CVA/TIA Cardiac & Pulmonary Exam Cardiac Exam: Normal S1/S2 Heart Sounds Pulmonary Exam: Clear Bilateral Breath Sounds Implantable Cardiac Device Does patient have a Pacemaker or an ICD?: No Airway Exam Known Difficult Airway: No Mallampati Class: 2 Mouth Opening: Normal (> 3cm) Thyromental Distance: Greater than 3 cm Neck Range of Motion: Full ROM Neck Circumference: Normal Teeth Condition: Normal Dentition ASA Classification ASA Score: ASA 2 Emergency Case?: No NPO Status NPO Status: NPO Clears >2 hours, Solids >8 hours Anesthesia Plan Resuscitation Status: DNR Modified During Perioperative Period Resuscitation Modifications: Pt. Requests for Clinical Judgement to be Used Anesthesia Technique: Spinal Anesthesia Airway Planned: Natural Airway Pain Management: Surgeon and patient request nerve block Monitors Used: Standard Monitors and SedLine
[2023-08-20] MEDS: Lactated Ringers 1,000 ML 30 ML IV (06:49)
--- NOTE | 2023-08-20 07:11 | W.PM.DSUDISC ---
Date of service: 08/20/23 Time of Service: 13:00 Discharge Plan Disposition Patient Disposition: Home Condition: Stable Discharge Details Attending Provider: Cali Cook Primary Care Provider: Carmela Matthews Home Meds and New Rx's Prescriptions: New aspirin 81 mg capsule 81 mg PO BID 30 Days Qty: 60 0RF naproxen 250 mg tablet 250 - 500 mg PO BID PRN (Reason: moderate pain and swelling) Qty: 40 0RF tramadol 50 mg tablet 50 mg PO Q8H PRN (Reason: severe pain) Qty: 12 0RF Continued Privigen 10 % solution 25 g IV Q4W cyanocobalamin (vitamin B-12) 1,000 mcg capsule 2,000 mcg PO DAILY cholecalciferol (vitamin D3) 25 mcg (1,000 unit) capsule 25 mcg PO DAILY latanoprost 0.005 % drops 1 drp ophthalmic (eye) QPM dorzolamide 2 % drops 1 drp ophthalmic (eye) BID amitriptyline 25 mg tablet 25 mg PO QHS estradiol 0.01 % (0.1 mg/gram) cream 1 g vaginal QWEEK Patient Comments: three times weekly Discharge Instructions Additional Instructions: Surgery: Right medial unicondylar knee replacement Activity: Weightbearing as tolerated. Recommend elevation to minimize swelling and discomfort. Walk as comfort allows. May use crutches or walker as needed for a few weeks. It is important to restore full knee extension as soon as possible. Gently increase knee flexion over the next few weeks. Do not rest with pillows behind knee to prevent knee from getting stuck bent. Encourage ankle pumps and wiggling toes to increase circulation. A physical therapy prescription will be sent electronically to begin in 2-3 weeks. Prescriptions: Aspirin 81 mg take 1 twice a day to prevent a blood clot 30 days, starting tomorrow morning Naproxen 250 mg take 1-2 every 12 hours with a meal as needed for moderate pain Tramadol 50 mg take 1 every 6-8 hours as needed for severe pain You may use [id number] Tylenol (acetaminophen) as needed for mild pain. These pain medications may be taken all at once or in different combinations as needed. Also, recommend Colace (docusate) as a stool softener as surgery and pain medicine cause constipation. You may try [id number] diphenhydramine (Benadryl) 25-50 mg nightly as a sleep aid Dressings: Leave Band-Aid in place until follow-up. Keep clean and dry at all times. May remove Arnav wrap tomorrow. May re-wrap with Arnav wrap to help control swelling as needed. Follow-up: 10-[address] Cook You may take off the leg compression Arnav wrap and stockings tomorrow at home. You may also leave them on a few days longer if you have a history of leg swelling or edema. Let us know right away if you develop any redness, drainage, fevers, chest pain, or trouble breathing. Do not drink alcohol or drive for at least 24 hours after anesthesia. Please call the office during business hours with any questions or concerns. Stand Alone Forms: Anesthesia Discharge InstBrianna Carranza.Nerve Block Instructions, Juan R Deng (DSU) Discharge Orders Discharge Orders: Discharge Order (Routine); Ordered 08/20/23 Ordered By: Breanna Calzada Discharge Data Discharge Date/Time-TO BE ENTERED AT DEPARTURE: 08/20/23 13:29 DS: Diagnosis Discharge Diagnosis (1) Osteoarthritis of right knee: Status: Acute
--- NOTE | 2023-08-20 07:25 | ROE_ITS ---
Date of service: 08/20/23 Time of Service: 08:00 Operative Note Operative Note DATE OF PROCEDURE: 08/20/23 PRE-OP DIAGNOSIS: Right knee medial compartmental arthritis POST-OP DIAGNOSIS: same PROCEDURE: Right knee medial unicompartmental arthroplasty, CPT # 24166 The business assistant was medically required as this procedure involves retraction, protection of neurovascular structures, and manipulation of multiple instruments and implants at the same time, which cannot be done without a skilled business assistant. SURGEON: Cail Cook GEOGRAPHIC INFORMATION SYSTEM SURVEYOR: Breanna Calzada ANESTHESIA TYPE: Local By Surgeon and Spinal Refer to Anesthesia Record ESTIMATED BLOOD LOSS: 50 TOURNIQUET TIME: 0 COMPLICATIONS: None Patient was transported to: PACU Patient's condition: stable Implants: DePuy Sigma HP partial knee size 2 metal-backed tibial tray, 7 mm tibial insert fixed bearing, size 2 femoral component Indications: Please see complete medical record for details. Findings: Medial femoral condyle cartilage loss, obvious large medial meniscus tear and extrusion, moderate medial facet patellar chondromalacia. Intact ACL and lateral compartment. Procedure Description: The patient was taken to the operating room and transferred to the operating room table. Spinal anesthesia was induced. All bony prominences were well- padded. Preoperative antibiotics and 1 g TXA were administered. A tourniquet was placed loosely over padding high on the patient's thigh. The knee and lower extremity were prepped and draped in the usual sterile fashion. The correct patient, procedure, and side of the procedure were all verified prior to incision. A slightly medial of midline longitudinal approach was used to the knee extending from the superior pole the patella to the distal aspect of the tibial tubercle. The quadriceps tendon, patella borders, and patellar tendon were exposed. A full-thickness arthrotomy was performed starting splitting the quadriceps tendon and leaving a sleeve of tissue on the medial aspect of the patella and taking care to progress along the medial margin the patellar tendon. The MCL was elevated off the proximal medial tibia. The tibial alignment jig was set in place on the anterior medial aspect of the tibia and carefully adjusted to achieve proper alignment in the coronal and sagittal planes. Reciprocating saw was used to create the vertical cut at the medial aspect of the medial tibial eminence taking care to protect the ACL ligament footprint. The transverse cut was then done using the microsagittal saw through the jig taking care to retract and protect the MCL. The bone piece and cut were inspected and found to be appropriate for patient anatomy. A box rasp was used to clean up the cut especially the L component. The 7 mm spacer block was inserted and found to have good stability in full extension and slightly tight in 90 degrees of flexion with approximately 2 mm of joint space opening in about 20 degrees of flexion. The tibial trial spacer block was used to cassandra the rotational alignment and anterior extent of the femoral component. The spacer block was removed and the tibia was sized with the depth gauge. The distal femoral cutting block was inserted taking care to orient it appropriately. The +1 mm up guide was used to equalize the flexion to the extension gap. The cut was done using the saw through the guide. The posterior cutting block was then applied to the distal cut, ensured to be flush, rotation set, and it was pinned in place. The posterior cut was completed through the guide. The guide was removed, and the femur was sized with the femoral sizing blocks. The appropriate sized cutting jig was selected. Care was taken to ensure the block was flush with the resected distal and posterior femur bone louie faces. A curved gouge was used to cut the profile of the proximal tip of the femoral prosthesis, cassandra the extent of the anterior chamfer cut, and prevent trochlear cartilage delamination. The anterior cut was done using the osteotomes, the drill was used to drill the 2 peg holes, and the posterior chamfer cut was done through the jig with the saw. This last cutting block and bone cuts were removed. The medial meniscus remnant was removed. The femoral component trial was placed on the distal femur and the 7 mm spacer block confirmed appropriate balancing in flexion, extension, and again 2 mm of medial joint space opening in about 20 degrees of flexion. Tibial template was inserted and the size confirmed to be appropriate. The keel was used by hand to remove bone from the slot and the tibial peg drill was used in the peg hole. The pulse lavage was used to clean the bone surfaces. SmartSet medium viscosity cement was prepared. At the appropriate time during the early working phase, the cement was applied to the backside of the tibial and femoral components. Then, cement was carefully placed and pressurized into the proximal tibia taking care to only have minimal cement posteriorly. The tibial component was inserted at an angle and then impacted directing pressure from posterior to anterior to keep the flow of cement from posterior to anterior. Cement was then applied to the distal femur and the femoral component impacted. Excess cement was removed. The knee was brought into full extension and this position with axial load was maintained until the cement was completely hardened at 18 minutes. A combination R.E.C.K. (123 mg Ropivacaine, 0.25 mg Epinephrine, 0.04 mg Clonidine, and 15 mg Ketorolac) 50 ml injection was widely infiltrated about the knee. The wound was copiously irrigated with the pulse lavage and Surgiphor. Tibial tray environmental services tech was removed, and the final tibial insert was inserted and clicked into place. The knee was tested through range of motion found to be stable with equal balancing from full extension to flexion past 90 degrees and a couple millimeters of medial joint space opening in 20-30 degrees of flexion. Appropriate hemostasis was achieved. The capsule was approximated using #1 Vicryl in a figure-of-8 interrupted fashion and then closed using Stratafix #1 PDS barbed suture in a running fashion. The superficial layers were irrigated. Subcutaneous tissue was closed using 2-0 Monocryl in a buried interrupted fashion. Skin was closed using 3-0 Monocryl in a buried subcuticular fashion. The skin incision was glued and then covered with a Mepilex Ag dressing. An Arnav wrap was applied from the foot up to the thigh. The patient awoke from anesthesia without complication was transferred to the recovery room in stable condition.
[2023-08-20] MEDS: ceFAZolin 2 GM/50 ML BAG IVPB (07:30)
[2023-08-20] MEDS: TRANEXAMIC ACID/SOD. CHL. 1,000 MG/100 ML BAG 600 MG IVPB (07:46)
--- NOTE | 2023-08-20 08:02 | W.ANESNERVE ---
Nerve Block Single Injection Procedure Date and Time Date Performed: 08/20/23 Procedure Start: 07:15 Location Where Procedure Performed Procedure Location: Day Surgery Unit Reason Performed: Postoperative Analgesia Requesting Provider: Cali Cook Timeout Performed Timeout Performed: Yes Monitoring Used ECG, Blood Pressure, SpO2 and See EMR for corresponding vital signs Sterility Sterility: Hand Hygiene, Surgical Cap, Surgical Mask, Sterile Gloves and Chlorhexidine Sedation Given During Procedure Sedation Given (Indicate Dose Given): Versed IV Dose:: 2mg Patient Mental Status Patient Mental Status: Sedate with meaningful communication Nerve Block 1st Nerve Block: Laterality: Right Block Type: Adductor Canal Ultrasound Image Saved?: Yes Needle / Catheter Used: 100mm SonoPlex II Local Anesthetic Bolus (Indicate Dose Given): Lidocaine used for local infiltration of skin, Injected in 3-5ml increments after negative blood aspiration, Bupivacaine 0.25% Dose:: 10mL and Exparel Dose:: 10mL Additives (Indicate Dose Given): None Ultrasound: Sterile probe cover and gel used Nerve Stimulator: Supplement to Ultrasound use Paresthesia: None Procedure Tolerated: No Complications and Patient tolerated well Procedure Outcome: Successful Performed By: Tanya George Supervised By: Eliza Villanueva
--- NOTE | 2023-08-20 10:30 | DI.RAD_ITS ---
Exam(s) XR KNEE RT 2V AP,LAT EXAM: XR KNEE RT 2V AP,LAT CLINICAL HISTORY: knee arthritis. TECHNIQUE: 2D digital imaging was performed. Three images were obtained. AP, AP oblique and lateral views were obtained. COMPARISON: CR XR KNEE RT 3V AP,LAT,VERNELL from 01/29/2023 FINDINGS: BONES: The patient is now status post partial right knee replacement. The orthopedic hardware appear s in good position. No fracture or dislocation. JOINTS: The orthopedic hardware is in good position. No evidence of hardware loosening. SOFT TISSUE: Normal. IMPRESSION: Status post partial right knee replacement. DATA REPOSITORY: RADIATION DOSE DELIVERED:
--- NOTE | 2023-08-20 10:54 | W.ANESPOSTOP ---
Postoperative Evaluation Date, Time and Location Date Performed: 08/20/23 Time Performed: 10:55 Patient Location: PACU Vital Signs Most Recent Imported Vital Signs: Most Recent Vital Signs Temp Pulse Resp BP Pulse Ox 36.5 C 59 L 16 123/72 99 08/20/23 07:15 08/20/23 07:15 08/20/23 07:15 08/20/23 07:15 08/20/23 07:15 Most Recent Manually Entered Vital Signs: Adult Blood Pressure: 91/60 Heart Rate: 67 Respirations: 13 Oxygen Saturation (%): 95 Temperature (C): 36.2 C Pain Score (0-10 Scale): 0 Pain Score Most Recent Pain Score: Most Recent Pain Score Pain Level 0 08/20/23 07:15 Assessment Mental Status: Awake (Alert & Oriented to Patient Baseline) Airway and Respiratory Function: Patent airway with normal (patient baseline) respiratory exam Cardiovascular Function: Hemodynamically Stable Hydration Status: Adequately Hydrated Nausea & Vomiting: No Nausea or Vomiting Pain: Pt. Denies Any Pain Peripheral Nerve Block: Regional nerve block not resolved at time of post operative discharge
[2023-08-20] MEDS: ceFAZolin 1 GM/50 ML BAG IVPB (11:26)
--- NOTE | 2023-08-20 12:43 | IN_ITS ---
PT Notes Physical Therapy Day Surgery Initial Evaluation Date: 08/20/2023 Referring Doctor: ANUJ Beaver PT Orders: PT CONSULT: S/P Ortho Surgery Precautions: WBAT on the R LE with AD. Patient Profile/Admitting Diagnosis: Maricarmen is a 77-year-old female with degenerative joint disease of the right knee and status post right medial unicompartmental arthroplasty on postoperative day 0. PMHX: All Active Problems Osteoarthritis of right knee (Acute) depo medrol: 01/29/2023; 10/05/22 Medical History History of ETOH abuse CIDP (chronic inflammatory demyelinating polyneuropathy) Depression Migraines Wide-angle glaucoma History of bulimia Abnormal mammogram Skin cancer basal cell carcinoma of nose Vulvodynia Peralta's esophagus with esophagitis Rectocele IBS (irritable bowel syndrome) GERD (gastroesophageal reflux disease) Surgical History History of tubal ligation H/O dilation and curettage Hx of arthroscopic knee surgery S/P right knee arthroscopy Social History/Home Situation: Lives with in a private home with 3 steps to enter with a rail on the right side going up. They have a flight of steps to their bedroom with a rail on the right side going up and a wall on the other side for support. Independent with all aspects feels prior to surgery although has had increasing difficulty to perform mobility ADLs due to arthritis. Equipment Owned/DME: [facility] Subjective: Reports 1?2/10 pain on the back of the right knee at rest and with movement. Denied headache, chest pain, and lightheadedness throughout session. Objective: General Observation: Seated on bedside chair. present in room throughout session. SANDEEP wraps to right knee. Mental Status: A and O x 4 Pain: As above ROM: Right Lower Extremity: Hip flexion WFL. Hip abduction WFL. Knee flexion 10 degrees to 90 degrees ACTIVELY. Knee extension -10 degrees ankle dorsiflexion WFL. Ankle plantarflexion WFL. Left Lower Extremity: Hip flexion WFL. Hip abduction WFL. Knee flexion WFL. Ankle dorsiflexion WFL. Ankle plantarflexion WFL. Strength: Right Lower Extremity: Hip flexors 5/5. Hip abductors 5/5. Knee flexors 3-/5. Knee extensors 3-/5. Ankle dorsiflexors 5/5. Ankle plantarflexors 5/5. Left Lower Extremity:Hip flexors 5/5. Hip abductors 5/5. Knee flexors 5/5. Knee extensors 5/5. Ankle dorsiflexors 5/5. Ankle plantarflexors 5/5. Sensation: Intact as to pain and light pressure in bilateral lower extremities Bed Mobility/Transfers: Minimal cueing provided for use of B hands as needed for support, movement sequence, AD management, and posture to reduce fall risk and minimize pain report Supine to sit stand by assist Sit to stand standby assist with FWW Stand to sit standby assist Bed to chair standby assist Gait: Facilitated safe and correct performance of level surface ambulation covering a distance of 150 feet using front-wheeled walker with good right LE alignment demonstrating reciprocal swing through heel-toe gait pattern but decreased bending on the right knee. Minimal verbal cues provided for increased knee flexion on the right AD management, and posture to reduce fall risk and minimize pain report. Balance: Static Sitting: Normal Dynamic Sitting: Normal Static Standing: Fair Dynamic Standing: Fair Special Tests: Mobility Limitations Standardized Measure [facility] 6 clicks Basic Mobility Inpatient Short Form: Raw Score: 24 CMS Score: 0% deficit Informed Consent/Education: Patient instructed in purpose of PT consult. Packet containing partial TKA exercise protocol has been given to patient. Education and training on initial set of exercises that can be done at home have been completed with patient. Trained patient with correct performance of exercises below to maximize motor control, joint flexibility, soft tissue extensibility of the R knee musculature: Access Code: [email or web address] URL: [email or web address] Date: 08/20/2023 Prepared by: Prerna Andujar Exercises - Supine Quad Set - 1 x daily - 7 x weekly - 1 sets - 10 reps - 5 hold - Supine Heel Slide - 1 x daily - 7 x weekly - 1 sets - 10 reps - 5 hold - Supine Ankle Pumps - 1 x daily - 7 x weekly - 1 sets - 10 reps - 5 hold - Small Range Straight Leg Raise - 1 x daily - 7 x weekly - 1 sets - 10 reps - 5 hold - Seated March - 1 x daily - 7 x weekly - 1 sets - 10 reps - 5 hold Assessment: Patient requires use of a front wheeled walker for mobility ADL performance maximize independence and reduce fall risk Patient presents with clinical signs and symptoms consistent with current/admitting diagnoses that have resulted to mobility limitations, gait instability, generalized weakness, and impairment of motor control as demonstrated by the following impairment level findings: 1. Decreased strength to R knee major muscle groups 2. Impaired standing balance 3. Limitation of joint range of motion in R knee Impairments are contributing to the following functional limitations: 1. Inability to safely ambulate without assistive device 2. Increase completion time for mobility ADL performance 3. Increased fall risk Patient is assessed as a 95650 moderate complexity based on the following: History: 77-year-old female with impairment level findings, functional limitations, and past medical history as indicated above Examination: Demonstrable impairment in strength, balance, and mobility level with underlying impairments and functional limitations as documented above Presentation: Evolving Decision Makin moderate complexity Goals: N/A. PT evaluation and 1-2 treatment sessions only for functional mobility training using recommended AD and for HEP instruction. Plan of Care/Treatment Plan: N/A. PT evaluation and 1-2 treatment session only for functional mobility training using recommended AD and for HEP instruction. DISCHARGE RECOMMENDATIONS: Home when medically cleared by orthopedic surgeon. Recommend outpatient PT services in order to optimize functional mobility outcomes and facilitate return to independent community ambulation without an assistive device. TREATMENT CODE/TIME: 9716 2 x 29 minutes for 1 unit (12:43-13:12). Thank you for the opportunity to participate in the care of this patient. Please sign an return this page within 30 days if you agree with the above POC. Thank you! Physician Signature Date [facility] Thank you for the opportunity to participate in the care of this patient. Prerna Andujar PT, DPT, CLT [facility] [place], [place]
== END 2023-08-20 13:29 | disposition home or self-care (01) ==
PROVIDERS: PCP Family Medicine; Visit Provider Student in an Organized Health Care Education/Training Program
PROC: (CPT 27446; principal; 2023-08-20 07:30)
DX: M17.11 Unilateral primary osteoarthritis, right knee (principal)
CPT/HCPCS: 27446; C1776; 76942; 97162; 73560; C9290; J0131; J0665; J0690; J1100; J1885; J2001; J2250; J2371; J2405; J2704

== ENCOUNTER 2023-09-01 15:31 | Outpatient (CLI) | payer MEDICARE, BC, SELFPAY ==
--- NOTE | 2023-09-01 13:30 | DI.RAD_ITS ---
Exam(s) XR KNEE RT 2V AP,LAT EXAM: XR KNEE RT 2V AP,LAT INDICATION: 1ST POST OP S/P R UNI KNEE. COMPARISON: CR XR KNEE RT 2V AP,LAT from 08/20/2023 TECHNIQUE: 2D digital imaging was performed. Two views. FINDINGS: There has been no change in the alignment of the medial femoral tibial joint space prosthesis. DATA REPOSITORY: RADIATION DOSE DELIVERED:
== END 2023-09-01 15:32 | disposition home or self-care (01) ==
LOC: DIORS 15:32
PROVIDERS: PCP Family Medicine; Visit Provider Physician Assistant
DX: Z96.659 Presence of unspecified artificial knee joint (principal); Z47.1 Aftercare following joint replacement surgery; Z96.651 Presence of right artificial knee joint
CPT/HCPCS: 73560

== ENCOUNTER 2023-09-16 05:03 | Outpatient (RCR) | payer MEDICARE, BC, SELFPAY ==
[2023-09-01 00:25] VITALS: BP 112/75; PULSE 66; RESP 16; TEMP 36.9
[2023-09-16] VITALS (8 sets, daily range): BP systolic 123–141; BP diastolic 83–90; PULSE 68–75; RESP 17; TEMP 36.2–37; O2SAT 97–99
[2023-09-16] MEDS: Normal Saline Flush 10 ML SYR IVP (10:38)
[2023-09-16] MEDS: IMMUNE GLOBULIN 10 GM/100 ML BTL IVPB (10:38)
[2023-09-16] MEDS: IMMUNE GLOBULIN 40 GM/400 ML BTL IVPB (11:47)
== END 2023-10-01 23:59 | disposition home or self-care (01) ==
LOC: INF 05:03
PROVIDERS: PCP Family Medicine; Visit Provider Family Medicine
DX: G61.81 Chronic inflammatory demyelinating polyneuritis (principal)
CPT/HCPCS: 96365; 96366; J1459

== ENCOUNTER 2023-09-23 12:07 | Outpatient (REF) | payer MEDICARE, BC, SELFPAY ==
[2023-09-23 16:51] LABS: CREATININE 0.7 mg/dL (0.55-1.02); Estimated GFR 90.14 (mL/min/1.73m2)
== END 2023-09-23 12:08 | disposition home or self-care (01) ==
LOC: NCHCN 12:07
PROVIDERS: PCP Family Medicine; Visit Provider Family Medicine
DX: R15.9 Full incontinence of feces (principal)
CPT/HCPCS: 82565

== ENCOUNTER 2023-10-14 00:44 | Outpatient (RCR) | payer MEDICARE, BC, SELFPAY ==
[2023-10-02 00:26] VITALS: BP 112/75; PULSE 66; RESP 16; TEMP 36.9
[2023-10-14] VITALS (7 sets, daily range): BP systolic 109–137; BP diastolic 55–87; PULSE 69–82; RESP 17–18; TEMP 36.6–37.2; O2SAT 96–99
[2023-10-14] MEDS: IMMUNE GLOBULIN 10 GM/100 ML BTL IVPB (09:15)
[2023-10-14] MEDS: Normal Saline Flush 10 ML SYR IVP (10:20)
[2023-10-14] MEDS: IMMUNE GLOBULIN 40 GM/400 ML BTL IVPB (10:20)
== END 2023-10-31 23:59 | disposition home or self-care (01) ==
LOC: INF 00:44
PROVIDERS: PCP Family Medicine; Visit Provider Family Medicine
DX: G61.81 Chronic inflammatory demyelinating polyneuritis (principal)
CPT/HCPCS: 96365; 96366; J1459

== ENCOUNTER 2023-10-18 14:41 | Outpatient (REF) | payer MEDICARE, BC, SELFPAY ==
--- OUTSIDE RECORDS SUMMARY | 2023-10-18 14:44 | XMS_ITS ---
Author Name Unknown Address [address] [place] [address] [phone] Phone Organization Unknown Address [address] [place] [address] [phone] Phone Care Team Providers Care Lidar Scientist Name Role Phone JOSE LUIS WOODWARD Attending Unavailable Social History Type Status Start Date End Date Code Code Syst em Smoking History Unknown if ever smoked [id number] Sex Female Hospital Discharge Instructions Should you have any questions prior to discharge, please contact a member of your healthcare team. If you have left the hospital and have any questions, please contact your primary care physician. Reason For Referral No Data Found Plan of Treatment No Data Found Encounters Encounter Diagnosis Start Date Code Code Sys tem Full incontinence of feces 07/28/2023 S NOMED-CT Personal Care Team Section Performer Name Performer Role Active Date Inactive Da te
== END 2023-10-18 14:42 | disposition home or self-care (01) ==
LOC: NCHCN 14:41
PROVIDERS: PCP Family Medicine; Visit Provider Nurse Practitioner Family
DX: R30.0 Dysuria (principal)
CPT/HCPCS: 87077; 87086; 87186

== ENCOUNTER 2023-10-19 14:49 | Outpatient (CLI) | payer MEDICARE, BC, SELFPAY ==
--- NOTE | 2023-10-19 13:45 | DI.RAD_ITS ---
Exam(s) XR KNEE RT 2V AP,LAT EXAM: XR KNEE RT 2V AP,LAT INDICATION: F/U RIGHT UKA. COMPARISON: CR XR KNEE RT 2V AP,LAT from 09/01/2023 TECHNIQUE: 2D digital imaging was performed. Two views. FINDINGS: A medial femoral tibial joint space prosthesis is again noted. There has been no change in the align ment. No abnormal surrounding bony lucencies. DATA REPOSITORY: RADIATION DOSE DELIVERED:
--- OUTSIDE RECORDS SUMMARY | 2023-10-19 14:51 | XMS_ITS ---
Author Name Unknown Address [address] [place] [address] [phone] Phone Organization Unknown Address [address] [place] [address] [phone] Phone Care Team Providers Care Car Inspector Name Role Phone JOSE LUIS WOODWARD Attending Unavailable Social History Type Status Start Date End Date Code Code Syst em Smoking History Unknown if ever smoked [id number] Sex Female Hospital Discharge Instructions [...]
== END 2023-10-19 14:50 | disposition home or self-care (01) ==
LOC: DIORS 14:49
PROVIDERS: PCP Family Medicine; Referring Provider Family Medicine; Visit Provider Student in an Organized Health Care Education/Training Program
DX: Z47.1 Aftercare following joint replacement surgery (principal); Z96.651 Presence of right artificial knee joint
CPT/HCPCS: 73560

== ENCOUNTER 2023-11-11 00:51 | Outpatient (RCR) | payer MEDICARE, BC, SELFPAY ==
[2023-11-01 00:08] VITALS: BP 112/75; PULSE 66; RESP 16; TEMP 36.9
[2023-11-11] VITALS (8 sets, daily range): BP systolic 117–137; BP diastolic 76–84; PULSE 68–75; RESP 16–17; TEMP 36.2–36.6; O2SAT 96–99
[2023-11-11] MEDS: IMMUNE GLOBULIN 40 GM/400 ML BTL IVPB (09:23)
[2023-11-11] MEDS: Normal Saline Flush 10 ML SYR IVP (09:23)
[2023-11-11] MEDS: IMMUNE GLOBULIN 10 GM/100 ML BTL IVPB (12:15)
== END 2023-12-01 23:59 | disposition home or self-care (01) ==
LOC: INF 00:51
PROVIDERS: PCP Family Medicine; Visit Provider Family Medicine
DX: G61.81 Chronic inflammatory demyelinating polyneuritis (principal)
CPT/HCPCS: 96365; 96366; J1459

== ENCOUNTER 2023-12-15 02:34 | Outpatient (RCR) | payer MEDICARE, BC, SELFPAY ==
[2023-12-02 00:08] VITALS: BP 112/75; PULSE 66; RESP 16; TEMP 36.9
[2023-12-15 09:10] VITALS: BP 124/79; PULSE 72; RESP 19; TEMP 36.5; O2SAT 98
[2023-12-15] MEDS: IMMUNE GLOBULIN 10 GM/100 ML BTL IVPB (09:18)
[2023-12-15] MEDS: Normal Saline Flush 10 ML SYR IVP (09:21)
[2023-12-15 09:35] VITALS: BP 124/75; PULSE 84; RESP 18; TEMP 36.4; O2SAT 99
[2023-12-15 10:20] VITALS: BP 122/78; PULSE 77; RESP 17; TEMP 36.1; O2SAT 99
[2023-12-15] MEDS: IMMUNE GLOBULIN 40 GM/400 ML BTL IVPB (10:21)
[2023-12-15 10:50] VITALS: BP 123/81; PULSE 82; RESP 17; TEMP 36.6; O2SAT 99
[2023-12-15 11:19] VITALS: BP 168/73; PULSE 72; RESP 18; TEMP 36.3; O2SAT 100
== END 2024-01-01 23:59 | disposition home or self-care (01) ==
LOC: INF 02:34
PROVIDERS: PCP Family Medicine; Visit Provider Family Medicine
DX: G61.81 Chronic inflammatory demyelinating polyneuritis (principal)
CPT/HCPCS: 96365; 96366; J1459

== ENCOUNTER 2023-12-28 15:52 | Outpatient (CLI) | payer MEDICARE, BC, SELFPAY ==
--- NOTE | 2023-12-28 14:28 | DI.RAD_ITS ---
Exam(s) XR KNEE RT 2V AP,LAT EXAM: XR KNEE RT 2V AP,LAT INDICATION: F/U RIGHT UKA. COMPARISON: CR XR KNEE RT 2V AP,LAT from 10/19/2023 TECHNIQUE: 2D digital imaging was performed. Two views. FINDINGS: Stable alignment of medial femoral tibial joint space prosthesis. No abnormal adjacent lucencies. N o new abnormalities. DATA REPOSITORY: RADIATION DOSE DELIVERED:
== END 2023-12-28 15:53 | disposition home or self-care (01) ==
LOC: DIORS 15:52
PROVIDERS: PCP Family Medicine; Visit Provider Student in an Organized Health Care Education/Training Program
DX: Z47.1 Aftercare following joint replacement surgery (principal); Z96.651 Presence of right artificial knee joint
CPT/HCPCS: 99213; 73560

== ENCOUNTER 2024-01-11 01:40 | Outpatient (RCR) | payer MEDICARE, BC, SELFPAY ==
[2024-01-02 00:05] VITALS: BP 112/75; PULSE 66; RESP 16; TEMP 36.9
[2024-01-11] VITALS (8 sets, daily range): BP systolic 117–157; BP diastolic 64–88; PULSE 72–79; RESP 17; TEMP 36.1–36.6; O2SAT 96–99
[2024-01-11] MEDS: IMMUNE GLOBULIN 10 GM/100 ML BTL IVPB (09:09)
[2024-01-11] MEDS: Normal Saline Flush 10 ML SYR IVP (09:10)
[2024-01-11] MEDS: IMMUNE GLOBULIN 40 GM/400 ML BTL IVPB (10:14)
== END 2024-01-31 23:59 | disposition home or self-care (01) ==
LOC: INF 01:40
PROVIDERS: PCP Family Medicine; Visit Provider Family Medicine
DX: G61.81 Chronic inflammatory demyelinating polyneuritis (principal)
CPT/HCPCS: 96365; 96366; J1459

== ENCOUNTER 2024-02-10 01:57 | Outpatient (RCR) | payer MEDICARE, BC, SELFPAY ==
[2024-02-01 00:05] VITALS: BP 112/75; PULSE 66; RESP 16; TEMP 36.9
[2024-02-10] MEDS: IMMUNE GLOBULIN 10 GM/100 ML BTL IVPB (11:50)
[2024-02-10] MEDS: Normal Saline Flush 10 ML SYR IVP (11:58)
[2024-02-10 11:59] VITALS: BP 124/79; PULSE 69; RESP 18; TEMP 36.9; O2SAT 97
[2024-02-10 12:15] VITALS: BP 134/52; PULSE 71; RESP 17; TEMP 36.2; O2SAT 98
[2024-02-10 12:30] VITALS: BP 146/75; PULSE 63; RESP 18; TEMP 36.1; O2SAT 99
[2024-02-10 13:00] VITALS: BP 115/77; PULSE 70; RESP 16; TEMP 36.3; O2SAT 96
[2024-02-10] MEDS: IMMUNE GLOBULIN 40 GM/400 ML BTL IVPB (13:09)
[2024-02-10 13:30] VITALS: BP 121/71; PULSE 68; RESP 16; TEMP 36.3; O2SAT 99
[2024-02-10 14:02] VITALS: BP 115/78; PULSE 64; RESP 18; TEMP 36.1; O2SAT 98
== END 2024-03-02 23:59 | disposition home or self-care (01) ==
LOC: INF 01:57
PROVIDERS: PCP Family Medicine; Visit Provider Family Medicine
DX: G61.81 Chronic inflammatory demyelinating polyneuritis (principal)
CPT/HCPCS: 96365; 96366; J1459

== ENCOUNTER 2024-03-15 01:40 | Outpatient (RCR) | payer MEDICARE, BC, SELFPAY ==
[2024-03-03 00:25] VITALS: BP 112/75; PULSE 66; RESP 16; TEMP 36.9
[2024-03-15] MEDS: Normal Saline Flush 10 ML SYR IVP (09:52)
[2024-03-15] MEDS: IMMUNE GLOBULIN 10 GM/100 ML BTL IVPB (09:52)
[2024-03-15 10:00] VITALS: BP 121/77; PULSE 74; RESP 18; TEMP 36.3; O2SAT 97
[2024-03-15 10:15] VITALS: BP 111/76; PULSE 68; RESP 18; TEMP 36.6; O2SAT 97
[2024-03-15 10:30] VITALS: BP 125/81; PULSE 71; RESP 18; TEMP 36.7; O2SAT 96
[2024-03-15 10:33] LABS: Abs Immature Grans 0.01 10^3/uL (0.0-0.06); Absolute Basophil Count 0.04 10^3/uL (0.0-0.2); Absolute Eosinophil Count 0.13 10^3/uL (0.0-0.7); Absolute Lymphocyte Count 0.99 10^3/uL (1.2-3.4); Absolute Monocyte Count 0.31 10^3/uL (0.1-0.8); Absolute Neutrophil Count 1.45 10^3/uL (1.2-6.7); Basophils % 1.4 %; Eosinophils % 4.4 %; HGB 11.7 g/dL (11.2-15.7); Immature Grans % 0.3 %; Lymphocytes % 33.8 %; MCH 33.1 pg (27.0-33.0); MCHC 32.5 % (32.0-36.0); MCV 102 fL (80-95); MPV 11.5 fL (8.0-11.0); Monocytes % 10.6 %; Neutrophils % 49.5 %; Platelet Count 154 10^3/uL (130-400); RBC 3.53 10^6/uL (3.93-5.22); RDW 13.6 % (11.7-14.6); RDW-SD 51.5 fL; WBC 2.93 10^3/uL (4.4-10.8)
[2024-03-15] MEDS: IMMUNE GLOBULIN 40 GM/400 ML BTL IVPB (11:02)
[2024-03-15 11:05] VITALS: BP 120/80; PULSE 63; RESP 18; TEMP 36.5; O2SAT 97
[2024-03-15 11:35] VITALS: BP 116/80; PULSE 67; RESP 18; TEMP 36.9; O2SAT 98
[2024-03-15 12:15] VITALS: BP 135/80; PULSE 65; RESP 18; TEMP 36.7; O2SAT 97
== END 2024-04-01 23:59 | disposition home or self-care (01) ==
LOC: INF 01:40
PROVIDERS: Psychiatry & Neurology Neurology; PCP Family Medicine; Visit Provider Family Medicine
DX: G61.81 Chronic inflammatory demyelinating polyneuritis (principal)
CPT/HCPCS: 96365; 96366; 85025; J1459

== ENCOUNTER 2024-04-14 01:06 | Outpatient (RCR) | payer MEDICARE, BC, SELFPAY ==
[2024-04-02 00:10] VITALS: BP 112/75; PULSE 66; RESP 16; TEMP 36.9
[2024-04-14] VITALS (7 sets, daily range): BP systolic 115–142; BP diastolic 72–85; PULSE 64–72; RESP 16–17; TEMP 36.2–36.3; O2SAT 97–100
[2024-04-14] MEDS: Normal Saline Flush 10 ML SYR IVP (10:26)
[2024-04-14] MEDS: IMMUNE GLOBULIN 10 GM/100 ML BTL IVPB (10:26)
[2024-04-14] MEDS: IMMUNE GLOBULIN 40 GM/400 ML BTL IVPB (11:36)
== END 2024-05-02 23:59 | disposition home or self-care (01) ==
LOC: INF 01:06
PROVIDERS: PCP Family Medicine; Visit Provider Family Medicine
DX: G61.81 Chronic inflammatory demyelinating polyneuritis (principal)
CPT/HCPCS: 96365; 96366; J1459

== ENCOUNTER 2024-05-11 04:08 | Outpatient (RCR) | payer MEDICARE, BC, SELFPAY ==
[2024-05-03 00:07] VITALS: BP 112/75; PULSE 66; RESP 16; TEMP 36.9
[2024-05-11] MEDS: IMMUNE GLOBULIN 10 GM/100 ML BTL IVPB (10:21)
[2024-05-11] MEDS: Normal Saline Flush 10 ML SYR IVP (10:22)
[2024-05-11 10:25] VITALS: BP 128/82; PULSE 74; TEMP 36.4; O2SAT 99
[2024-05-11 10:40] VITALS: BP 120/80; PULSE 74; TEMP 36.4; O2SAT 99
[2024-05-11] MEDS: IMMUNE GLOBULIN 40 GM/400 ML BTL IVPB (11:29)
[2024-05-11 11:30] VITALS: BP 110/70; PULSE 69; TEMP 36.6; O2SAT 98
[2024-05-11 12:00] VITALS: BP 128/81; PULSE 69; TEMP 36.2; O2SAT 99
[2024-05-11 12:30] VITALS: BP 121/85; PULSE 72; TEMP 36.4; O2SAT 100
[2024-05-11 13:00] VITALS: BP 123/78; PULSE 72; TEMP 36.3; O2SAT 98
== END 2024-06-02 23:59 | disposition home or self-care (01) ==
LOC: INF 04:08
PROVIDERS: PCP Family Medicine; Visit Provider Family Medicine
DX: G61.81 Chronic inflammatory demyelinating polyneuritis (principal)
CPT/HCPCS: 96365; 96366; J1459

== ENCOUNTER 2024-06-07 00:51 | Outpatient (RCR) | payer MEDICARE, BC, SELFPAY ==
[2024-06-07] MEDS: IMMUNE GLOBULIN 10 GM/100 ML BTL IVPB (09:59)
[2024-06-07] MEDS: Normal Saline Flush 10 ML SYR IVP (10:00)
[2024-06-07 10:05] VITALS: BP 120/72; PULSE 67; RESP 17; TEMP 36.4; O2SAT 100
[2024-06-07 10:20] VITALS: BP 130/84; PULSE 71; RESP 17; TEMP 36.6; O2SAT 100
[2024-06-07 10:35] VITALS: BP 106/67; PULSE 70; RESP 17; TEMP 36.6; O2SAT 99
[2024-06-07 11:05] VITALS: BP 111/76; PULSE 70; RESP 17; TEMP 36.5; O2SAT 99
[2024-06-07] MEDS: IMMUNE GLOBULIN 40 GM/400 ML BTL IVPB (11:15)
[2024-06-07 11:35] VITALS: BP 119/83; PULSE 70; RESP 17; TEMP 36.5; O2SAT 99
[2024-06-07 12:05] VITALS: BP 136/91; PULSE 71; RESP 17; TEMP 36.7; O2SAT 99
== END 2024-06-30 23:59 | disposition home or self-care (01) ==
LOC: INF 00:51
PROVIDERS: PCP Family Medicine; Visit Provider Family Medicine
DX: G61.81 Chronic inflammatory demyelinating polyneuritis (principal)
CPT/HCPCS: 96365; 96366; J1459

== ENCOUNTER 2024-07-05 02:48 | Outpatient (RCR) | payer MEDICARE, BC, SELFPAY ==
[2024-07-05] VITALS (7 sets, daily range): BP systolic 105–127; BP diastolic 67–77; PULSE 69–75; RESP 16–19; TEMP 36.3–36.6; O2SAT 97–99
[2024-07-05] MEDS: Normal Saline Flush 5 ML SYR IVP (09:23)
[2024-07-05] MEDS: IMMUNE GLOBULIN 10 GM/100 ML BTL IVPB (09:23)
[2024-07-05] MEDS: IMMUNE GLOBULIN 40 GM/400 ML BTL IVPB (10:33)
== END 2024-07-31 23:59 | disposition home or self-care (01) ==
LOC: INF 02:48
PROVIDERS: PCP Family Medicine; Visit Provider Family Medicine
DX: G61.81 Chronic inflammatory demyelinating polyneuritis (principal)
CPT/HCPCS: 96365; 96366; J1459

== ENCOUNTER 2024-08-15 03:33 | Outpatient (RCR) | payer MEDICARE, BC, SELFPAY ==
[2024-08-15 08:28] VITALS: BP 124/83; PULSE 80; RESP 18; TEMP 36.8; O2SAT 96
[2024-08-15] MEDS: IMMUNE GLOBULIN 10 GM/100 ML BTL IVPB (08:41)
[2024-08-15 09:00] VITALS: BP 130/78; PULSE 72; RESP 18; TEMP 37; O2SAT 96
[2024-08-15] MEDS: Normal Saline Flush 5 ML SYR IVP (09:02)
[2024-08-15 09:17] VITALS: BP 129/72; PULSE 73; RESP 16; TEMP 36.8; O2SAT 96
[2024-08-15] MEDS: IMMUNE GLOBULIN 40 GM/400 ML BTL IVPB (09:50)
[2024-08-15 09:52] VITALS: BP 114/73; PULSE 67; RESP 16; TEMP 36.8; O2SAT 96
[2024-08-15 10:25] VITALS: BP 108/74; PULSE 68; RESP 14; TEMP 36.6; O2SAT 96
[2024-08-15 11:17] VITALS: BP 120/80; PULSE 61; RESP 16; TEMP 36.6; O2SAT 99
== END 2024-08-30 23:59 | disposition home or self-care (01) ==
LOC: INF 03:33
PROVIDERS: PCP Family Medicine; Visit Provider Family Medicine
DX: G61.81 Chronic inflammatory demyelinating polyneuritis (principal)
CPT/HCPCS: 96365; 96366; J1459

== ENCOUNTER 2024-08-22 09:33 | Outpatient (CLI) | payer MEDICARE, BC, SELFPAY ==
--- NOTE | 2024-08-22 09:20 | DI.RAD_ITS ---
Exam(s) XR KNEE RT 2V AP,LAT EXAM: XR KNEE RT 2V AP,LAT CLINICAL HISTORY: 1ST POST OP S/P L UNI KNEE. TECHNIQUE: 2D digital imaging was performed. Two images were obtained. AP and lateral views were ob tained. COMPARISON: CR XR KNEE RT 2V AP,LAT from 12/28/2023 FINDINGS: BONES: There are stable post operative changes of a right unicompartmental knee arthroplasty present. No fracture or dislocation. JOINTS: The orthopedic hardware is in good position. No evidence of hardware loosening. There is a small joint effusion. SOFT TISSUE: There is a stable calcification lateral to the lateral femoral condyle. IMPRESSION: Stable unicompartmental right knee arthroplasty. DATA REPOSITORY: RADIATION DOSE DELIVERED:
== END 2024-08-22 09:34 | disposition home or self-care (01) ==
LOC: DIORS 09:33
PROVIDERS: PCP Family Medicine; Referring Provider Family Medicine; Visit Provider Student in an Organized Health Care Education/Training Program
DX: Z47.1 Aftercare following joint replacement surgery (principal); Z96.651 Presence of right artificial knee joint
CPT/HCPCS: 99213; 73560

== ENCOUNTER 2024-09-14 01:33 | Outpatient (RCR) | payer MEDICARE, BC, SELFPAY ==
[2024-09-14] VITALS (8 sets, daily range): BP systolic 116–137; BP diastolic 78–84; PULSE 66–81; RESP 17–18; TEMP 35.8–36.9; O2SAT 97–100
[2024-09-14] MEDS: IMMUNE GLOBULIN 10 GM/100 ML BTL IVPB (08:29)
[2024-09-14] MEDS: Normal Saline Flush 10 ML SYR IVP (08:29)
[2024-09-14] MEDS: IMMUNE GLOBULIN 40 GM/400 ML BTL IVPB (09:42)
== END 2024-09-30 23:59 | disposition home or self-care (01) ==
LOC: INF 01:33
PROVIDERS: PCP Family Medicine; Visit Provider Family Medicine
DX: G61.81 Chronic inflammatory demyelinating polyneuritis (principal)
CPT/HCPCS: 96365; 96366; J1459

== ENCOUNTER 2024-10-12 01:40 | Outpatient (RCR) | payer MEDICARE, BC, SELFPAY ==
[2024-10-12] VITALS (7 sets, daily range): BP systolic 103–120; BP diastolic 64–73; PULSE 59–69; RESP 18–20; TEMP 36–36.4; O2SAT 97–100
[2024-10-12] MEDS: IMMUNE GLOBULIN 10 GM/100 ML BTL IVPB (11:22)
[2024-10-12] MEDS: IMMUNE GLOBULIN 40 GM/400 ML BTL IVPB (12:24)
[2024-10-12] MEDS: Normal Saline Flush 10 ML SYR IVP (14:37)
== END 2024-10-30 23:59 | disposition home or self-care (01) ==
LOC: INF 01:40
PROVIDERS: PCP Family Medicine; Visit Provider Family Medicine
DX: G61.81 Chronic inflammatory demyelinating polyneuritis (principal)
CPT/HCPCS: 96365; 96366; J1459